=== PATIENT | male | born 1970 | race Caucasian/White ===

== ENCOUNTER 2018-08-29 14:42 | Inpatient (IN) | payer MEDICAID, OTHER ==
[~2018-08-29] VITALS: Ht 172.7 cm; Wt 92.6 kg
[2018-08-29] MEDS ORDERED: SODIUM CHLORIDE 0.9% 1,000 ML IV ONE (14:52)
[2018-08-29] MEDS ORDERED: ACETAMINOPHEN 325 MG TAB PO ONE (15:00)
[2018-08-29] MEDS ORDERED: LEVOFLOXACIN 500MG 100 ML IV ONE (15:00)
[2018-08-29] MEDS ORDERED: IBUPROFEN 600 MG TAB PO ONE (15:00)
[2018-08-29 15:35] LABS: Basophils # (auto) 0.1 uL; Basophils % (auto) 0.5 % (0.0-2.0); Eosinophils # (auto) 0 uL; Eosinophils % (auto) 0.1 % (0.0-7.0); Hematocrit 40.8 % (41.0-53.0); Hemoglobin 13.4 g/dL (13.5-17.5); Lymphocytes # (auto) 0.9 uL; Lymphocytes % (auto) 4.7 % (10.0-50.0); Mean Corpuscular Hemoglobin 29.2 pg (28.0-32.0); Mean Corpuscular Hgb Conc. 32.8 g/dL (32.0-36.0); Mean Corpuscular Volume 88.9 fL (80.0-100.0); Monocytes # (auto) 1.2 uL; Monocytes % (auto) 6.5 % (0.0-12.0); Neutrophils # (auto) 16.5 uL; Neutrophils % (auto) 88.2 % (37.0-80.0); Platelet Count (auto) 372 10^3/uL (140-450); Red Blood Cells 4.59 10^6/uL (4.5-5.90); Red Cell Distribution Width 12.9 % (11.8-14.3); White Blood Cell 18.7 10^3/uL (4.4-10.8)
[2018-08-29 15:44] LABS: Albumin 2.4 g/dL (3.4-5.0); Anion Gap 7 (5-15); Blood Urea Nitrogen 27 mg/dL (7-18); Carbon Dioxide 22 mmol/L (21-32); Chloride 105 mmol/L (98-107); Glucose 120 mg/dL (74-106); Magnesium 2.2 mg/dL (1.6-2.6); Potassium 4.7 mmol/L (3.5-5.1); Sodium 134 mmol/L (136-145)
[2018-08-29 15:47] LABS: Alanine Aminotransferase 14 U/L (16-61); Alkaline Phosphatase 102 U/L (45-117); Aspartate Aminotransferase 20 U/L (15-37); BUN/Creatinine Ratio 19.6; Bilirubin, Total 0.4 mg/dL (0.2-1.0); GFR Non-African American 58 mL/min
[2018-08-29 15:50] LABS: GFR African American > 60 mL/min
[2018-08-29 16:07] LABS: Lactic Acid w/Reflex 4.6 mmol/L (0.4-2.0)
[2018-08-29] MEDS ORDERED: SODIUM CHLORIDE 0.9% 2,700 ML IV ONE (16:30)
[2018-08-29] MEDS ORDERED: SODIUM CHLORIDE 0.9% 1,000 ML IV SCH (16:41)
[2018-08-29] MEDS ORDERED: LORazepam 0.5 MG TAB PO PRN (16:45)
[2018-08-29] MEDS ORDERED: TEMAZEPAM 15 MG CAP PO PRN (16:45)
[2018-08-29] MEDS ORDERED: OSELTAMIVIR 75 MG CAP PO ONE (16:45)
[2018-08-29] MEDS ORDERED: NITROGLYCERIN 0.4 MG SL TAB SL PRN (16:45)
[2018-08-29] MEDS ORDERED: ACETAMINOPHEN 500 MG TAB PO PRN (16:45)
[2018-08-29] MEDS ORDERED: HYDROcodone-ACET 5/325MG TAB PO PRN (16:45)
[2018-08-29] MEDS ORDERED: MORPHINE SULFATE 4 MG/ML SYR/VIAL IV PRN ×2 (16:45)
[2018-08-29] MEDS ORDERED: LACTULOSE 20Gm/30ML SOLN PO PRN ×2 (16:45)
[2018-08-29] MEDS: ALBUTEROL SULF 2.5 MG/0.5ML(0.5%) NEB SOLN NEB SCH (18:29)
[2018-08-29] MEDS: IPRATROPIUM BROM 0.5 MG/2.5ML INH SOL NEB SCH (18:29)
[2018-08-29] MEDS ORDERED: FUROSEMIDE 40 MG/4 ML VIAL IV ONE (18:45)
[2018-08-29] MEDS: FUROSEMIDE 40 MG/4 ML VIAL IV SCH (20:00)
[2018-08-29 20:13] VITALS: BP 148/79
[2018-08-29 20:40] LABS: Alcohol, Urine < 3.0 mg/dL (0-5); Amphetamine Screen, Urine POSITIVE (NEGATIVE); Barbiturate Scree,Urine NEGATIVE (NEGATIVE); Benzodiazephine Screen, Urine NEGATIVE (NEGATIVE); Cannabinoid Screen, Urine POSITIVE (NEGATIVE); Cocaine Screen, Urine NEGATIVE (NEGATIVE); Opiate Scree,Urine NEGATIVE (NEGATIVE); Phencyclidine Screen, Urine NEGATIVE (NEGATIVE)
[2018-08-29] MEDS: ALBUTEROL SULF 2.5 MG/0.5ML(0.5%) NEB SOLN NEB PRN (20:58)
[2018-08-29] MEDS: CARVEDILOL 3.125 MG TAB PO SCH (23:15)
[2018-08-29] MEDS: CLINDAMYCIN 600MG IV 50 ML IV SCH (23:15)
[2018-08-30] VITALS (12 sets, daily range): BP systolic 95–173; BP diastolic 57–109
[2018-08-30] MEDS ORDERED: cloNIDine HCL 0.1 MG TAB PO ONE (02:15)
[2018-08-30] MEDS ORDERED: LABETALOL HCL 5 MG/ML ML 20ML VIAL IV ONE ×2 (03:15→06:45)
[2018-08-30] MEDS ORDERED: LABETALOL HCL 5 MG/ML 4ML SYRINGE IV ONE (03:19)
[2018-08-30] MEDS: ALBUTEROL SULF 2.5 MG/0.5ML(0.5%) NEB SOLN NEB SCH ×4 (06:00→18:00)
[2018-08-30] MEDS: IPRATROPIUM BROM 0.5 MG/2.5ML INH SOL NEB SCH ×4 (06:00→18:00)
[2018-08-30] MEDS: FUROSEMIDE 40 MG/4 ML VIAL IV SCH ×2 (06:08→18:00)
[2018-08-30] MEDS: CLINDAMYCIN 600MG IV 50 ML IV SCH ×2 (06:08→13:46)
[2018-08-30 06:35] LABS: Basophils # (auto) 0 uL; Basophils % (auto) 0.2 % (0.0-2.0); Eosinophils # (auto) 0 uL; Eosinophils % (auto) 0.2 % (0.0-7.0); Hematocrit 33.2 % (41.0-53.0); Hemoglobin 11.1 g/dL (13.5-17.5); Lymphocytes # (auto) 1.6 uL; Lymphocytes % (auto) 7.9 % (10.0-50.0); Mean Corpuscular Hemoglobin 29.5 pg (28.0-32.0); Mean Corpuscular Hgb Conc. 33.4 g/dL (32.0-36.0); Mean Corpuscular Volume 88.4 fL (80.0-100.0); Monocytes # (auto) 1.4 uL; Monocytes % (auto) 7.1 % (0.0-12.0); Neutrophils # (auto) 16.9 uL; Neutrophils % (auto) 84.6 % (37.0-80.0); Platelet Count (auto) 285 10^3/uL (140-450); Red Blood Cells 3.76 10^6/uL (4.5-5.90); Red Cell Distribution Width 12.6 % (11.8-14.3)
[2018-08-30 06:43] LABS: Albumin 1.9 g/dL (3.4-5.0); Anion Gap 5 (5-15); Blood Urea Nitrogen 28 mg/dL (7-18); Calcium 7.5 mg/dL (8.5-10.1); Carbon Dioxide 23 mmol/L (21-32); Chloride 108 mmol/L (98-107); Glucose 112 mg/dL (74-106); Sodium 136 mmol/L (136-145)
[2018-08-30 06:48] LABS: Alanine Aminotransferase 13 U/L (16-61); Alkaline Phosphatase 92 U/L (45-117); Aspartate Aminotransferase 20 U/L (15-37); BUN/Creatinine Ratio 20.3; Bilirubin, Total 0.4 mg/dL (0.2-1.0); Cholesterol 78 mg/dL (< 200); GFR Non-African American 58 mL/min; HDL Cholesterol 29 mg/dL (40-59); LDL Cholesterol 47 mg/dL (< 100); Total Protein 7.2 g/dL (6.4-8.2); Triglycerides 65 mg/dL (< 150)
[2018-08-30 06:53] LABS: GFR African American > 60 mL/min
[2018-08-30] MEDS: ALBUTEROL SULF 2.5 MG/0.5ML(0.5%) NEB SOLN NEB PRN (08:30)
[2018-08-30] MEDS: PROMETHAZINE HCL 25 MG/ML 1ML IV PRN ×2 (08:39→14:35)
[2018-08-30] MEDS ORDERED: LORazepam 2MG/ML-1ML VIAL IV ONE (08:45)
[2018-08-30] MEDS ORDERED: ENALAPRIL MALEATE 10 MG TAB PO SCH (10:00)
[2018-08-30] MEDS ORDERED: OSELTAMIVIR 75 MG CAP PO SCH (10:00)
[2018-08-30] MEDS: PANTOPRAZOLE 40 MG TAB PO SCH (10:13)
[2018-08-30] MEDS: NITROGLYCERIN 0.2MG/HR TOPICAL PATCH TD SCH (10:13)
[2018-08-30] MEDS: CARVEDILOL 3.125 MG TAB PO SCH ×2 (10:13→23:05)
[2018-08-30] MEDS: POTASSIUM CHL 20 Meq TABLET PO SCH (10:13)
[2018-08-30] MEDS: ENOXAPARIN SOD 40 MG/0.4 ML SYRINGE SC SCH (10:13)
[2018-08-30] MEDS: LEVOFLOXACIN 500MG 100 ML IV SCH (10:23)
[2018-08-30] MEDS ORDERED: BUMETANIDE (0.25MG/ML) 4 ML VIAL ONE (11:59)
[2018-08-30] MEDS ORDERED: BUMETANIDE (0.25MG/ML) 4 ML VIAL IV ONE (12:00)
[2018-08-30] MEDS ORDERED: LORazepam 0.5 MG TAB PO PRN (12:00)
--- NOTE | 2018-08-30 14:05 | NUR ---
RT NOTE: PT AND WERE TOLD TO LEAVE PT ON BIPAP AND CALL FOR ME IF NEEDING TO COME OFF. UPON ENTERING ROOM, PT WAS OFF BIPAP AGAIN. ALTHOUGH NOT IN SEVERE OF RESPIRATORY DISTRESS. PT WAS STILL HAVING INCREASED WOB WITH ACCESSORY MUSCLE USAGE. HE WAS ON 3L NC SITTING IN BED WITH AND SONS AT BEDSIDE. SPO2 WAS 98 HR 89 RR 22. BP 179/101. RN STATED THAT PT HAS BEEN GIVEN DIURETICS WITH NO OUT PUT. IT WAS EXPLAINED TO PT THAT BIPAP WILL HELP PUSH FLUIDS OUT OF HIS LUNGS AND THAT HE WILL CONTINUE TO DETERIORATE WITH OUT IT BECAUSE XRAY IS SHOWING WORSENING EDEMA. PT UNDERSTOOD BUT STILL DID NOT WANT BIPAP ON AT THIS TIME. THEY WERE TOLD THAT IF AT ANY POINT SOB WORSENS TO PAGE AND I WILL RETURN BEDSIDE TO START BIPAP. WILL CONTINUE TO MONITOR.
[2018-08-30] MEDS: NITROGLYCERIN 50MG/250ML 250 ML IV SCH (16:15)
[2018-08-30] MEDS ORDERED: ETOMIDATE (2MG/ML) 20ML VIAL IV ONE ×2 (16:54→17:00)
[2018-08-30] MEDS ORDERED: SUCCINYLCHOLINE CHLORIDE 20 MG/ML 10ML VIAL IV ONE ×2 (16:54→17:00)
[2018-08-30] MEDS ORDERED: PROPOFOL 100 ML IV ONE (17:03)
[2018-08-30] MEDS ORDERED: MIDAZOLAM DRIP 50 mg/50mL 50 ML IV ONE (18:00)
[2018-08-30] MEDS ORDERED: ACETAMINOPHEN 650 MG RECT SUPP PR ONE ×2 (18:50→19:00)
[2018-08-30] MEDS: PROPOFOL 100 ML IV SCH (18:52)
[2018-08-30] MEDS: MIDAZOLAM DRIP 50 mg/50mL 50 ML IV SCH (18:52)
[2018-08-30] MEDS ORDERED: VANCOMYCIN 1GM/250ML 250 ML IV ONE (19:15)
[2018-08-30] MEDS ORDERED: VANCOMYCIN PER PHARMACY 0 MG IV SCH (19:15)
[2018-08-30] MEDS ORDERED: SODIUM CHLORIDE 0.9% 500 ML IV ONE (19:15)
--- NOTE | 2018-08-30 21:10 | NUR ---
RECEIVED PATIENT FROM E. VIA PT'S BED. ON PROPOFOL 20 MCG/KG/MIN., RAC #20G, VERSED 15 MG/HR. # 20 RFA. IV SITE TO RIGHT HAND DC'D IT APPEARS SWOLLEN, PITTING, AND RED. VANCOMYCIN COMPLETED. TIN RECOVERY WORKER SHOWS SINUS RHYTHM 60'S. SBP 140'S. HYPERACTIVE GAG AND COUGH, DIPRIVAN UP TO 30 MCG/KG/MIN. BED BATH GIVEN AND LINEN CHANGED. VENTED - AC 20/TV 600, FIO2 60%, PEEP +5. 8 FR/ 24 CM AT LIP. SATS 99%. WOUNDS - LEFT ROUND, HIP PINK SCABBED WOUND, ROUGH, DRY, RIGHT POSTERIOR CALF ROUND, SCABBED WOUND, ROUGH SURFACE., LEFT LATERAL KNEE - SCABBED AREA, ROUND, PINK, ROUGH SURFACE, DRY. MORGAN CATH WITH DARK ZAC URINE, (+) OGT, CLAMPED, POSITION CHECKED BY AUSCULTATION. FEBRILE UPON ADMISSION 100.2 AX. 108 KG BED SCALE EDEMA BILATERAL LOWER EXTREMITIES, 3+. RADIAL AND PEDAL PULSES 2+.
--- NOTE | 2018-08-30 21:15 | NUR ---
Respiratory note: TRANSPORTED PT FROM ER5 TO ICU BED 101 WITHOUT INCIDENT WITH RT, RN AND TECH.
[2018-08-30 22:22] LABS: BUN/Creatinine Ratio 18.1; Calcium 7.3 mg/dL (8.5-10.1)
--- NOTE | 2018-08-30 22:31 | NUR ---
LEFT IJ CENTRAL LINE PLACED BY ELIANE WAREHOUSE GENERAL LABORER, AWAITING X-RAY FOR CONFIRMATION, R/O PNEUMO.
--- NOTE | 2018-08-30 22:31 | NUR ---
Respiratory note: RECIVED PT ON VENT V14, VENT CONNECTED TO RED OUTLET AND O2 SOURCE. ALARMS ARE SET AND AUDIBLE. AMBU BAG NAND MASK AT BEDSIDE BS ARE FINE COURSE SXD SMALL DUFF. WILL CONTINUE TO MONITOR. RT NAME AND PAGER ASSIGNMENT WRITTEN ON PTS ROOM BOARD.
[2018-08-30 22:40] LABS: Potassium 5.8 mmol/L (3.5-5.1)
--- NOTE | 2018-08-30 22:45 | NUR ---
SPOKE TO ELIANE GUZMAN REGARDING K+ 5.8
[2018-08-30] MEDS ORDERED: DEXTROSE (50%) 50ML SYRG IV ONE (23:00)
[2018-08-30] MEDS ORDERED: CALCIUM GLUC 4.65meq/50ml D5AE 50 ML IV ONE (23:00)
[2018-08-30] MEDS ORDERED: SODIUM BICARBONATE 8.4 % INJ 50ML VIAL IV ONE (23:00)
[2018-08-30] MEDS ORDERED: SODIUM POLYSTYRENE SULF 15GM/60ML SUSP NG ONE (23:00)
[2018-08-30] MEDS ORDERED: InsuLIN REG 1unit/0.01ml Soln (100units/ml) IV ONE (23:00)
[2018-08-30] MEDS: ENALAPRIL MALEATE 10 MG TAB PO SCH (23:03)
--- NOTE | 2018-08-30 23:05 | NUR ---
HALF DOSAGE COREG GIVEN PRESSURES AND HR LOWER SBP 110'S, HR MID 60'S, WITH PROPOFOL AND VERSED FOR SEDATION. [facility] RIO CARD MAKER NOTIFIED
--- NOTE | 2018-08-30 23:27 | NUR ---
TREATMENT FOR ELEVATED K+ INITIATED PER ORDERS.
[2018-08-31] VITALS (106 sets, daily range): BP systolic 115–171; BP diastolic 62–116
[2018-08-31] MEDS: ALBUTEROL SULF 2.5 MG/0.5ML(0.5%) NEB SOLN NEB SCH ×4 (00:14→18:42)
[2018-08-31] MEDS: IPRATROPIUM BROM 0.5 MG/2.5ML INH SOL NEB SCH ×4 (00:14→18:41)
--- NOTE | 2018-08-31 00:14 | NUR ---
Respiratory note: AT BEDSIDE FOR ROUTINE VENT CHECK. MED NEB TX GIVEN INLINE WITHOUT ADVERSE REACTION. WILL CONTINUE TO MONITOR.
[2018-08-31] MEDS: MIDAZOLAM DRIP 50 mg/50mL 50 ML IV SCH ×6 (00:21→20:00)
--- NOTE | 2018-08-31 00:45 | NUR ---
PT'S MICHELLE AT BEDSIDE. QUESTIONS AND CONCERNS ADDRESSED. HISTORY OBTAINED.
--- NOTE | 2018-08-31 01:35 | NUR ---
BLOOD SUGAR 60, ELIANE GUZMAN PAGED TO NOTIFY
--- NOTE | 2018-08-31 01:55 | NUR ---
CALL RECEIVED FROM DEL RIO, ORDERS FOR B.S 60 RECEIVED, WILL INITIATE.
[2018-08-31] MEDS ORDERED: DEXTROSE (50%) 50ML SYRG IV ONE (02:00)
--- NOTE | 2018-08-31 04:18 | NUR ---
Respiratory note: END OF SHIFT CHECK NO CHANGES DONE. WILL HAVE DAY SHIFT CONTINUE TO MONITOR.
[2018-08-31 04:21] LABS: Basophils # (auto) 0 uL; Basophils % (auto) 0.3 % (0.0-2.0); Eosinophils # (auto) 0.2 uL; Eosinophils % (auto) 1.2 % (0.0-7.0); Hematocrit 27.5 % (41.0-53.0); Hemoglobin 9.3 g/dL (13.5-17.5); Lymphocytes % (auto) 14.1 % (10.0-50.0); Mean Corpuscular Hgb Conc. 33.8 g/dL (32.0-36.0); Mean Corpuscular Volume 88.8 fL (80.0-100.0); Monocytes # (auto) 1.3 uL; Monocytes % (auto) 9.4 % (0.0-12.0); Neutrophils # (auto) 10.5 uL; Platelet Count (auto) 230 10^3/uL (140-450); White Blood Cell 13.9 10^3/uL (4.4-10.8)
[2018-08-31] MEDS: VANCOMYCIN 500 MG in D5W 5% 100 ML IV SCH ×3 (04:35→21:23)
[2018-08-31 04:40] LABS: Calcium 7.3 mg/dL (8.5-10.1); Potassium 4.2 mmol/L (3.5-5.1)
[2018-08-31 04:43] LABS: Albumin 1.6 g/dL (3.4-5.0); BUN/Creatinine Ratio 17.6
[2018-08-31 04:48] LABS: Bilirubin, Total 0.3 mg/dL (0.2-1.0); Total Protein 6.4 g/dL (6.4-8.2)
[2018-08-31 04:55] LABS: INR 1.07 (0.9-1.15); Partial Thromboplastin Time 35.4 sec (23.78-33.04); Prothrombin Time 11.4 sec (9.27-12.13)
--- NOTE | 2018-08-31 04:55 | NUR ---
BLOOD SUGAR - 67, OJ 120CC THRU OGT, WILL RECHECK
[2018-08-31] MEDS: PROPOFOL 100 ML IV SCH ×2 (05:05→12:50)
[2018-08-31] MEDS: FUROSEMIDE 40 MG/4 ML VIAL IV SCH ×2 (06:11→17:32)
--- NOTE | 2018-08-31 06:30 | NUR ---
BLOOD SUGAR 74, WILL CONTINUE TO MONITOR.
--- NOTE | 2018-08-31 07:20 | NUR ---
REPORT GIVEN TO JAGJIT SRIVASTAVA
[2018-08-31] MEDS: CARVEDILOL 3.125 MG TAB PO SCH ×2 (10:00→22:00)
[2018-08-31] MEDS: NITROGLYCERIN 0.2MG/HR TOPICAL PATCH TD SCH (10:00)
[2018-08-31] MEDS: ENALAPRIL MALEATE 10 MG TAB PO SCH ×2 (10:00→22:06)
[2018-08-31] MEDS: PANTOPRAZOLE 40 MG TAB PO SCH (10:00)
[2018-08-31] MEDS: POTASSIUM CHL 20 Meq TABLET PO SCH (10:00)
[2018-08-31] MEDS: ENOXAPARIN SOD 40 MG/0.4 ML SYRINGE SC SCH (10:00)
[2018-08-31] MEDS: LEVOFLOXACIN 500MG 100 ML IV SCH (10:00)
--- NOTE | 2018-08-31 12:30 | NUR ---
WOUND CARE NOTE: PATIENT ADMITTED TO [facility] WITH DIAGNOSIS OF PNA. PATIENT IS CURRENTLY INTUBATED, SEDATED, CURRENT FRANCIS SCORE IS 9. PATIENT HAS MULTPLE SMALL SCABBED ABRASIONS TO BLE. WOUND PHOTOS WERE TAKEN UPON ADMIT, BY BEDSIDE NURSE. NO OPEN OR DRAINING AREAS, LEFT OPEN TO AIR. RECOMMEND: FREQUENT TURN SCHEDULE Q 2 HOURS, PRN CONDITION PERMITS, WITH PRESSURE REDISTRIBUTION USING PILLOWS/WEDGES, BID/PRN APPLICATION WITH MOISTURE BARRIER CREAM, COVERING UPPER MEDIAL SACRUM WITH OPTIFOAM GENTLE SACRAL DRESSING, DIETARY CONSULT FOR LOW FRANCIS 9, CONTINUED MONITORING BY WOUND CARE TEAM. Addendum: 08/31/18 at 1440 by Jessica Neves RN Amended: Links added.
--- NOTE | 2018-08-31 13:46 | NUR ---
Respiratory note: TITRATED FIO2 DOWN TO 50%. PATIENT IS TOLERATING CHANGE WELL. SPO2 100%, HR 59, RR 20. RN JAGJIT NOTIFIED AND AWARE. WILL CONTINUE TO MONITOR PATIENT.
[2018-08-31 15:31] LABS: Urine Bacteria FEW /hpf (None Seen); Urine Blood 2+ /uL (Negative); Urine Hyaline Cast FEW /lpf (0 - 2); Urine Mucus FEW (None Seen); Urine Specific Gravity 1.014 (1.001-1.035); Urine WBC 54 /hpf (0 - 3)
[2018-08-31 15:47] LABS: Protein, Urine 63.7 mg/dL (0.0-11.9)
[2018-08-31] MEDS: NITROGLYCERIN 50MG/250ML 250 ML IV SCH (16:10)
--- NOTE | 2018-08-31 20:00 | NUR ---
PT ADMITTED WITH BILATERAL PNA, DIARRHEA, LEG,HAND AND FOOT PITTING EDEMA, + TOX FOR METH, NONSTEMI, HYPONATREMIA AND SHERLY. ETT TO VENTILATOR. ON AC OF 20, RR 20. SUCTIONED FOR CLEAR/WHITE SECRETIONS. CLEAR ORAL SECRETIONS. WAKES UP BRIEFLY TO COUGH WHEN SUCTIONED. HERNANDEZ EQUALLY IN WITHDRAWING TO PAINFUL STIMULI. LUNGS CLEAR. NSR WITHOUT ECTOPY. OGT RESIDUAL IS DARK GREEN. ABDOMEN ROUND AND SOFT. MORGAN TO DOWN DRAIN BAG IS CLEAR YELLOW. NO BM. PLAN IS TO START TUBE FEEDINGS TOMORROW. ON VERSED AND DIPRIVAN DRIPS. RECEIVING ANTIBIOTICS.
--- NOTE | 2018-08-31 22:00 | NUR ---
REPOSITIONED TO BACK. CLEAR ORAL SECRETIONS SUCTIONED. SUCTIONED ETT FOR A SMALL AMOUNT OF WHITE SECRETIONS. LUNGS LIGHTLY COARSE. ABDOMEN SOFT. NO BOWEL SOUNDS. NO BM. MORGAN: ADEQUATE AMOUNT OF CLEAR YELLOW LIQUID. PITTING EDEMA PERSISTS IN HIS ARMS, LEGS AND FEET. WAKES UP READILY WHEN SUCTIONED, MOVING ALL EXTREMITIES EQUALLY. THEN QUIETS BACK DOWN. NSR RATE RANGING FROM 59 TO 67.
--- NOTE | 2018-08-31 23:35 | NUR ---
PO BLOOD PRESSURE MEDICATION DID NOT BRING HIS BLOOD PRESSURE UNDER 140. STARTED THE TRIDIL DRIP.
[2018-09-01] VITALS (73 sets, daily range): BP systolic 119–169; BP diastolic 54–96
--- NOTE | 2018-09-01 | NUR ---
AFTER SUCTIONING HE HAD A COUGHING EPISODE, ALL EXTREMITIES WERE MOVING, FACE TURNED RED AND HE WAS MOVING IN BED. THEN HE CALMED DOWN. SUCTIONED FROMT THE ETT A SMALL AMOUNT OF WHITE SECRETIONS. SMALL AMOUNT OF CLEAR ORAL SECRETIONS. ALL IV SITES SHOW NO REDNESS OR SWELLING. NSR WITH A RARE PVC. HEART RATE RANGES FROM 59-68. TRIDIL: INCREASING THE DRIP TO TRY AND MAINTAIN A BLOOD PRESSURE LESS THAN 140. NO INCREASE ON SEDATION. URINE OUTPUT ADEQUATE. URINE CLEAR YELLOW. SCDS ON. REPOSITIONED TO HIS LEFT.
[2018-09-01] MEDS: ALBUTEROL SULF 2.5 MG/0.5ML(0.5%) NEB SOLN NEB SCH ×4 (00:55→17:58)
[2018-09-01] MEDS: IPRATROPIUM BROM 0.5 MG/2.5ML INH SOL NEB SCH ×4 (00:55→17:58)
[2018-09-01] MEDS: PROPOFOL 100 ML IV SCH ×3 (01:00→21:40)
[2018-09-01] MEDS: MIDAZOLAM DRIP 50 mg/50mL 50 ML IV SCH ×6 (01:00→23:11)
--- NOTE | 2018-09-01 02:00 | NUR ---
WOKE UP AGAIN , COUGHING, MOVING ALL EXTREMITIES. SUCTIONED FOR A TINY AMOUNT OF WHITE SECRETIONS. HE CALMED DOWN. REPOSITIONED TO BACK. NSR WITHOUT ECTOPY. ALL IV SITES SHOW NO REDNESS OR SWELLING. URINE IS CLEAR YELLOW IN ADEQUATE AMOUNTS.
--- NOTE | 2018-09-01 04:10 | NUR ---
CHG BATH. DRAW SHEET/PAD LINEN CHANGE. REPOSITIONED. HOB 30 DEGREES. SUCTIONED ETT FOR A SMALL AMOUNT OF WHITE SECRETIONS. ORAL CARE DONE. ABDOMEN SOFT AND ROUND. SEVERAL SCABBED AREAS ON LEGS. PULSES PALPABLE. NO FEVERS TONIGHT. URINE IS CLEAR YELLOW.
[2018-09-01 04:17] LABS: Basophils # (auto) 0 uL; Basophils % (auto) 0.3 % (0.0-2.0); Eosinophils # (auto) 0.2 uL; Eosinophils % (auto) 1.7 % (0.0-7.0); Hematocrit 28.1 % (41.0-53.0); Hemoglobin 9.5 g/dL (13.5-17.5); Lymphocytes # (auto) 1.3 uL; Lymphocytes % (auto) 9.7 % (10.0-50.0); Mean Corpuscular Hemoglobin 29.6 pg (28.0-32.0); Mean Corpuscular Hgb Conc. 33.9 g/dL (32.0-36.0); Mean Corpuscular Volume 87.3 fL (80.0-100.0); Monocytes # (auto) 1.1 uL; Monocytes % (auto) 8.1 % (0.0-12.0); Neutrophils # (auto) 11.1 uL; Neutrophils % (auto) 80.2 % (37.0-80.0); Nucleated Red Blood Cells % 0.1 %; Platelet Count (auto) 253 10^3/uL (140-450); Red Blood Cells 3.22 10^6/uL (4.5-5.90); Red Cell Distribution Width 12.8 % (11.8-14.3); White Blood Cell 13.8 10^3/uL (4.4-10.8)
[2018-09-01 04:42] LABS: BUN/Creatinine Ratio 20.1; Calcium 7.6 mg/dL (8.5-10.1); Potassium 4.5 mmol/L (3.5-5.1)
[2018-09-01] MEDS: VANCOMYCIN 500 MG in D5W 5% 100 ML IV SCH (05:00)
[2018-09-01] MEDS: FUROSEMIDE 40 MG/4 ML VIAL IV SCH ×2 (06:00→18:28)
--- NOTE | 2018-09-01 08:30 | NUR ---
ASSESSMENT pt. was restless/ agitated earlier, sedation meds titrated, pt. calmer and more comfortable, oral care done and repositioning, pt. tolerated procedures well, will monitor pt.
[2018-09-01] MEDS: CARVEDILOL 3.125 MG TAB PO SCH ×2 (10:00→22:00)
[2018-09-01] MEDS: NITROGLYCERIN 0.2MG/HR TOPICAL PATCH TD SCH (10:00)
[2018-09-01] MEDS: LEVOFLOXACIN 500MG 100 ML IV SCH (10:18)
[2018-09-01] MEDS: PANTOPRAZOLE 40 MG TAB PO SCH (10:19)
[2018-09-01] MEDS: ENALAPRIL MALEATE 10 MG TAB PO SCH ×2 (10:20→22:00)
[2018-09-01] MEDS: ENOXAPARIN SOD 40 MG/0.4 ML SYRINGE SC SCH (10:20)
--- NOTE | 2018-09-01 10:30 | NUR ---
RE-ASSESSMENT pt. staying calm, gets restless with activity then calms down after bedside procedures, oral care done and pt. tolerated well, due meds were given and pt. made aware, ngt clamped, will monitor pt.
[2018-09-01] MEDS: POTASSIUM EFFERVESENT TAB 25 MEQ PO SCH (10:47)
--- NOTE | 2018-09-01 12:30 | NUR ---
RE-ASSESS vss, afebrile, no pain/distress seen, will continue to monitor pt.
[2018-09-01] MEDS ORDERED: Jevity 1.2 Cal/Fiber 1 Liter GT SCH (15:00)
--- NOTE | 2018-09-01 15:10 | NUR ---
Provider/Hospitalist at bedside Dr. Zimmer made rounds and saw pt. and made some orders.
--- NOTE | 2018-09-01 15:59 | NUR ---
Provider/Hospitalist at bedside Dr. Wells made rounds and saw pt. and made some orders.
--- NOTE | 2018-09-01 16:30 | NUR ---
RE-ASSESS vss, afebrile, no pain/distress seen, will continue to monitor pt.
[2018-09-01] MEDS: NITROGLYCERIN 50MG/250ML 250 ML IV SCH (18:56)
--- NOTE | 2018-09-01 20:00 | NUR ---
PT ADMITTED ON 08/29/2018 FOR BILATERAL PNEUMONIA. , DIARRHEA, SWELLING OF ARMS , LEGS AND FEET, ACUTE RESPIRATORY FAILURE, NSTEMI, LOWER LEG CELLULITIS . INTUBATED ON 08/30/2018. NO LONGER HAS DIARRHEA. SUCTIONING A LOT OF THICK YELLOW SECRETIONS TONIGHT. ARMS AND LEGS CONTINUE TO BE EDEMETOUS. MID CALF REDNESS ON LEGS. ALL PULSES PALPABLE. WAKES UP READILY. HERNANDEZ EQUALLY. DOES NOT OPEN HIS EYES AND FOCUS ON YOU. ABDOMEN IS ROUND AND SOFT. OGT TO LIS : 110CC OF DARK GREEN SECRETIONS. JEVITY TUBE FEED STARTED AT 15CC/HR. MORGAN: LARGE AMOUNT OF CLEAR, WATERY LIGHT YELLOW LIQUID TO DOWN DRAIN BAG. RADIAL PULSES STRONGER TODAY. BILATERAL FEET PULSES ARE WEAK. COCCYX AREA SKIN IS CLEAN, DRY, NO REDNESS. HEELS SHOW NO REDNESS. PILLOW U NDER LEGS TO KEEP HEELS OFF OF BED. SCDS ON. 3 PERIPHERAL IVS THAT SHOW NO REDNESS OR SWELLING . LEFT IJ TLC SITE IS CLEAN AND DRY WITH A CURRENT DRESSING AND BIOPATCH.
--- NOTE | 2018-09-01 21:40 | NUR ---
TO CT SCAN PER BED WITH RT,2 RNS AND SQUIRT MACHINE OPERATOR.PORTABLE MONITOR USED. ACLS MED BOX WITH US. PATIENT BAGGED TO AND DURING PROCEDURE BY RT. CT OF CHEST DONE. RETURNED TO ICU 101 AT 2220. PATIENT PLACED ON BEDSIDE MONITOR. SCDS REAPPLIED. SUCTIONED PATIENT FOR A LARGE AMOUNT OF THICK YELLOW SECRETIONS. NSR WITHOUT ECTOPY. IVS PATENT. NO REDNESS OR SWELLING NOTED IN ANY IV.
[2018-09-01] MEDS: VANCOMYCIN 1GM/250ML 250 ML IV SCH (23:12)
[2018-09-02] VITALS (106 sets, daily range): BP systolic 103–174; BP diastolic 46–112
--- NOTE | 2018-09-02 | NUR ---
NSR WITHOUT ECTOPY. WHEN QUIET, THE BLOOD PRESSURE IS WITHIN THE PARAMETER OF BEING LESS THAN 140 SYSTOLIC. CHELO. CLEAR ORAL SECRETIONS. SUCTIONING THICK YELLOW SECRETIONS FROM HIS LUNGS. LUNG SOUNDS ARE GETTING CLEARER. ABDOMEN IS SOFT. GOOD STRONG COUGH. HERNANDEZ SPONTANEOUSLY. IVS PATENT, SHOWING NO REDNESS OR SWELLING AT THEIR SITES. TOLERATING THE TUBE FEEDINGS WELL.
[2018-09-02] MEDS: IPRATROPIUM BROM 0.5 MG/2.5ML INH SOL NEB SCH ×5 (00:11→23:53)
[2018-09-02] MEDS: ALBUTEROL SULF 2.5 MG/0.5ML(0.5%) NEB SOLN NEB SCH ×5 (00:11→23:53)
--- NOTE | 2018-09-02 02:00 | NUR ---
PROPOFOL BOTTLE AND TUBING CHANGE. REPOSITIONED. ORAL CARE. LUNGS CLEAR. NSR WITHOUT ECTOPY.
[2018-09-02] MEDS: MIDAZOLAM DRIP 50 mg/50mL 50 ML IV SCH ×5 (03:00→21:30)
--- NOTE | 2018-09-02 04:00 | NUR ---
CHG BATH. INCONTINENT OF BROWN SOFT LIQUID STOOL. RAC AND L WRIST IV REMOVED. NEW BLOOD PRESSURE CUFF. NEW MAXIMO VALVE. COMPLETE LINEN CHANGE.
[2018-09-02 04:31] LABS: Potassium 4.1 mmol/L (3.5-5.1)
[2018-09-02 04:33] LABS: Basophils # (auto) 0 uL; Basophils % (auto) 0.3 % (0.0-2.0); Eosinophils # (auto) 0.2 uL; Eosinophils % (auto) 1.4 % (0.0-7.0); Hemoglobin 9.3 g/dL (13.5-17.5); Lymphocytes # (auto) 1.1 uL; Lymphocytes % (auto) 8.5 % (10.0-50.0); Mean Corpuscular Hemoglobin 29.8 pg (28.0-32.0); Mean Corpuscular Hgb Conc. 34.4 g/dL (32.0-36.0); Mean Corpuscular Volume 86.7 fL (80.0-100.0); Monocytes # (auto) 1.1 uL; Monocytes % (auto) 8.1 % (0.0-12.0); Neutrophils # (auto) 10.7 uL; Neutrophils % (auto) 81.7 % (37.0-80.0); Platelet Count (auto) 251 10^3/uL (140-450); Red Blood Cells 3.11 10^6/uL (4.5-5.90); Red Cell Distribution Width 12.8 % (11.8-14.3); White Blood Cell 13.1 10^3/uL (4.4-10.8)
[2018-09-02 04:36] LABS: BUN/Creatinine Ratio 20.8; Calcium 7.4 mg/dL (8.5-10.1)
[2018-09-02] MEDS: FUROSEMIDE 40 MG/4 ML VIAL IV SCH ×2 (06:11→17:21)
[2018-09-02] MEDS: PROPOFOL 100 ML IV SCH ×5 (06:12→21:30)
[2018-09-02] MEDS: NITROGLYCERIN 50MG/250ML 250 ML IV SCH (06:12)
--- NOTE | 2018-09-02 06:27 | NUR ---
Respiratory note: RECEIVED PATIENT ON V14 ESPRIT VENT ORALLY INTUBATED WITH AN 8.0 ETT SECURED VIA ADAMA AT THE 24CM MARKING AT THE LIP, AND MECHANICALLY VENTILATED WITH THE ABOVE SETTINGS. SPO2 96%, LUNG SOUNDS ARE CLEAR T/O, NO SECRETIONS WHEN SUCTIONED. SKIN IS WARM/DRY TO THE TOUCH AND IS INTACT NEAR ADAMA SITE. THERE IS AN OGT IN PLACE AND SECURED TO THE ETT, A TRIPLE LUMEN CENTRAL LINE IS PLACED IN THE LEFT IJ. NON PITTING EDEMA NOTED IN THE UPPER EXTREMITIES, AND PITTING EDEMA NOTED IN THE LOWER EXTREMITIES. LOWER EXTREMITIES HAVE SEQUENTIAL STOCKINGS ON AND ARE OPERATIONAL. NO NEW AM CXR TO ASSESS. PATIENT IS UNRESPONSIVE TO BOTH VERBAL/TACTILE STIMULI AND IS SEDATED ON VERSED, AND PROPOFOL DRIPS. HE IS RESTING COMFORTABLY AND TOLERATING VENT WELL, NO CHANGES MADE. VENT PLUGGED INTO RED OUTLET AND ALL ALARMS ARE SET AND AUDIBLE. WILL CONTINUE TO ASSESS PATIENT WELL VENTILATOR FUNCTION. [employer] TV-[employer] RUN INLINE.
--- NOTE | 2018-09-02 07:30 | NUR ---
Report received, pt assessed. Report received from Valentine with Anna. Patient admitted on 08/29/18 and intubated on 08/30/18. Admit diagnosis bilateral pneumonia. Patient also presented with coughing, diarrhea, and swelling of limbs. Patient tested positive for amphetamines and Cannibis. Assessed, lungs clear bilaterally, bowel sounds hypoactive, pupils brisk, sinus shantel, lines labeled and functioning, AM care completed. 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 Scabs present on skin and some edema of the limb. Pulses palpable. Signed: 09/02/18 at 0933 by SN Peyton <Co-Signature Required> Co-Signed: 09/02/18 at 0933 by Anna Fernandez RN
[2018-09-02] MEDS: CARVEDILOL 3.125 MG TAB PO SCH ×2 (09:35→23:00)
[2018-09-02] MEDS: NITROGLYCERIN 0.2MG/HR TOPICAL PATCH TD SCH (09:37)
[2018-09-02] MEDS: POTASSIUM EFFERVESENT TAB 25 MEQ PO SCH (09:37)
[2018-09-02] MEDS: PANTOPRAZOLE 40 MG TAB PO SCH (09:37)
[2018-09-02] MEDS: ENOXAPARIN SOD 40 MG/0.4 ML SYRINGE SC SCH (09:38)
[2018-09-02] MEDS: ENALAPRIL MALEATE 10 MG TAB PO SCH ×2 (09:38→23:00)
[2018-09-02] MEDS: LEVOFLOXACIN 500MG 100 ML IV SCH (09:39)
[2018-09-02 09:50] LABS: Albumin 1.5 g/dL (3.4-5.0)
--- NOTE | 2018-09-02 10:04 | NUR ---
Respiratory note: CXR ASSESSED AND IT SHOWS THE ETT SITTING IN UNSATISFACTORY POSITION, APPROX 6CM ABOVE THE CAMERON. ETT SUBSEQUENTLY ADVANCED 2CM AND RESECURED AT THE 26CM MARKING AT THE LIP.
--- NOTE | 2018-09-02 10:20 | NUR ---
FEEDING CHANGE NEW GOAL FOR [facility] FEEDING IS 50ML/HOUR PER DIETARY. Signed: 09/02/18 at 1026 by SN Peyton <Co-Signature Required> Co-Signed: 09/02/18 at 1026 by Anna Fernandez RN
[2018-09-02] MEDS ORDERED: Jevity 1.2 Cal/Fiber 1 Liter GT SCH (10:30)
[2018-09-02] MEDS ORDERED: MORPHINE SULFATE 4 MG/ML SYR/VIAL IV PRN ×2 (10:45)
[2018-09-02] MEDS ORDERED: hydrALAZINE HCL 25 MG TAB PO PRN (10:45)
[2018-09-02] MEDS ORDERED: HYDROcodone-ACET 5/325MG TAB PO PRN (10:45)
--- NOTE | 2018-09-02 10:45 | NUR ---
DR MENSAH REQUESTING DR STEVEN Mensah requested a page for Dr. Alcantar d/t patients high trops and CHF. Signed: 09/02/18 at 1053 by SN Peyton <Co-Signature Required> Co-Signed: 09/02/18 at 1053 by Anna Fernandez RN
--- NOTE | 2018-09-02 11:40 | NUR ---
DR ALCANTAR BEDSIDE Dr. Alcantar in the ICU, stated to continue the plan of care on the patient and once the patient is extubated he will put in a workup. Signed: 09/02/18 at 1145 by SN Peyton <Co-Signature Required> Co-Signed: 09/02/18 at 1145 by Anna Fernandez RN
--- NOTE | 2018-09-02 11:48 | NUR ---
NUTRITION CONSULT/ASSESSMENT NOTES Please refer to link notes of nutrition screen form filed under the intervention section of the plan of care for further details. Est. Needs: 1600 kcal to 2150 kcal (15-20 kcal/kgBW), 86 gms to 107 gms pro (0.8-1.0 gms/kgBW). Will continue to monitor pertinent labs and reassess nutrient needs prn Thank you for this consult. Addendum: 09/02/18 at [address] Amended: Links added.
--- NOTE | 2018-09-02 12:25 | NUR ---
DR DURHAM BEDSIDE Dr. Durham at bedside to complete thoracentesis. Consent signed, in chart. Signed: 09/02/18 at 1231 by SN Peyton <Co-Signature Required> Co-Signed: 09/02/18 at 1231 by Anna Fernandez RN
[2018-09-02] MEDS: VANCOMYCIN 1GM/250ML 250 ML IV SCH (17:20)
--- NOTE | 2018-09-02 19:28 | NUR ---
SBAR report given to ATIF Payton then assessed patient at bedside.
[2018-09-03] VITALS (106 sets, daily range): BP systolic 99–183; BP diastolic 53–113
[2018-09-03] MEDS: MIDAZOLAM DRIP 50 mg/50mL 50 ML IV SCH ×5 (02:04→23:12)
[2018-09-03] MEDS: PROPOFOL 100 ML IV SCH ×5 (02:08→20:35)
[2018-09-03 04:09] LABS: Albumin 1.6 g/dL (3.4-5.0); Calcium 7.4 mg/dL (8.5-10.1); Potassium 4.2 mmol/L (3.5-5.1)
[2018-09-03 04:13] LABS: BUN/Creatinine Ratio 18.8; Bilirubin, Total 0.4 mg/dL (0.2-1.0); Total Protein 6.9 g/dL (6.4-8.2)
[2018-09-03 04:20] LABS: Basophils # (auto) 0 uL; Basophils % (auto) 0.3 % (0.0-2.0); Eosinophils # (auto) 0.2 uL; Eosinophils % (auto) 1.4 % (0.0-7.0); Hematocrit 28.3 % (41.0-53.0); Hemoglobin 9.7 g/dL (13.5-17.5); Lymphocytes # (auto) 1.2 uL; Lymphocytes % (auto) 10.8 % (10.0-50.0); Mean Corpuscular Hemoglobin 29.8 pg (28.0-32.0); Mean Corpuscular Hgb Conc. 34.3 g/dL (32.0-36.0); Mean Corpuscular Volume 86.9 fL (80.0-100.0); Monocytes % (auto) 9.4 % (0.0-12.0); Neutrophils # (auto) 8.4 uL; Neutrophils % (auto) 78.1 % (37.0-80.0); Platelet Count (auto) 247 10^3/uL (140-450); Red Blood Cells 3.26 10^6/uL (4.5-5.90); Red Cell Distribution Width 12.7 % (11.8-14.3); White Blood Cell 10.7 10^3/uL (4.4-10.8)
[2018-09-03] MEDS: FUROSEMIDE 40 MG/4 ML VIAL IV SCH ×2 (05:19→17:51)
--- NOTE | 2018-09-03 06:30 | NUR ---
DRESSING CHANGE TO CENTRAL LINE TO LEFT IJ DUE TO MOISTURE AND DRESSING COMING OFF.
[2018-09-03] MEDS: IPRATROPIUM BROM 0.5 MG/2.5ML INH SOL NEB SCH ×3 (06:48→18:10)
[2018-09-03] MEDS: ALBUTEROL SULF 2.5 MG/0.5ML(0.5%) NEB SOLN NEB SCH ×3 (06:49→18:11)
--- NOTE | 2018-09-03 07:23 | NUR ---
REPORT TO GEOVANNA SRIVASTAVA
[2018-09-03] MEDS: NITROGLYCERIN 0.2MG/HR TOPICAL PATCH TD SCH (09:45)
[2018-09-03] MEDS: LEVOFLOXACIN 500MG 100 ML IV SCH (09:45)
[2018-09-03] MEDS: POTASSIUM EFFERVESENT TAB 25 MEQ PO SCH (09:46)
[2018-09-03] MEDS: ENOXAPARIN SOD 40 MG/0.4 ML SYRINGE SC SCH (09:46)
[2018-09-03] MEDS: CARVEDILOL 3.125 MG TAB PO SCH (09:46)
[2018-09-03] MEDS: PANTOPRAZOLE 40 MG TAB PO SCH (09:46)
--- NOTE | 2018-09-03 10:01 | NUR ---
FAMILY AND SON AT BEDSIDE. UPDATED ON PATIENT STATUS. ALL QUESTIONS AND CONCERNS ADDRESSED AT THIS TIME
--- NOTE | 2018-09-03 11:18 | NUR ---
DR. MENSAH AT BEDSIDE
[2018-09-03] MEDS: NITROGLYCERIN 50MG/250ML 250 ML IV SCH (12:41)
[2018-09-03] MEDS: hydrALAZINE HCL 25 MG TAB PO SCH ×2 (14:10→21:42)
--- NOTE | 2018-09-03 16:39 | NUR ---
FAMILY BROTHER AT BEDSIDE. UPDATED ON PATIENT STATUS. ALL QUESTIONS AND CONCERNS ADDRESSED AT THIS TIME
[2018-09-03] MEDS: NYSTATIN (MOUTH-THROAT) 500,000 UNITS/5 ML SUSP MT SCH ×2 (17:51→21:42)
--- NOTE | 2018-09-03 20:30 | NUR ---
COMPLETE LINEN CHANGE PERFORMED AT THIS TIME
--- NOTE | 2018-09-03 23:25 | NUR ---
ORAL CARE PERFORMED
[2018-09-04] VITALS (100 sets, daily range): BP systolic 95–196; BP diastolic 42–119
[2018-09-04] MEDS: IPRATROPIUM BROM 0.5 MG/2.5ML INH SOL NEB SCH ×4 (00:16→19:10)
[2018-09-04] MEDS: ALBUTEROL SULF 2.5 MG/0.5ML(0.5%) NEB SOLN NEB SCH ×4 (00:21→19:10)
[2018-09-04] MEDS: PROPOFOL 100 ML IV SCH ×2 (01:01→06:08)
--- NOTE | 2018-09-04 01:24 | NUR ---
BED BATH GIVEN
--- NOTE | 2018-09-04 03:17 | NUR ---
REPORT GIVEN TO JAQUAN SRIVASTAVA TO ASSUME CARE
--- NOTE | 2018-09-04 03:30 | NUR ---
OPENING SHIFT NOTE ASSUMED CARE OF PATIENT, REPORT RECEIVED FROM CHARGE ACCOUNT CLERK RN. POC REVIEWED, HEAD TO TOE ASSESSMENT PERFORMED AND DOCUMENTED (SEE INTERVENTION SPREADSHEET). AT THIS TIME, PATIENT IS INTUBATED WITH POSITIVE GAG AND COUGH, PUPILS 3+ BRISK, VSS WITH HEART RATE IN THE 50'S. IV SITE PATENT. PATIENT POSITIONED FOR COMFORT, BONY PROMINENCES OFFLOADED, BED LOCKED AND IN LOWEST POSITION. SAFETY PRECAUTIONS IN PLACE. BVM AND SUCTION AT BEDSIDE. WILL MONITOR DURING SHIFT.
[2018-09-04 03:47] LABS: Hematocrit 28.1 % (41.0-53.0); Hemoglobin 9.7 g/dL (13.5-17.5); Mean Corpuscular Hemoglobin 30.1 pg (28.0-32.0); Mean Corpuscular Hgb Conc. 34.3 g/dL (32.0-36.0); Mean Corpuscular Volume 87.7 fL (80.0-100.0); Platelet Count (auto) 238 10^3/uL (140-450); Red Blood Cells 3.21 10^6/uL (4.5-5.90); Red Cell Distribution Width 12.9 % (11.8-14.3); White Blood Cell 9.5 10^3/uL (4.4-10.8)
[2018-09-04 03:55] LABS: BUN/Creatinine Ratio 19.4; Calcium 7.6 mg/dL (8.5-10.1); Potassium 3.9 mmol/L (3.5-5.1)
[2018-09-04 04:22] LABS: Basophils % (manual) 0 (0.0-2.0); Blast Cells 0; Metamyelocytes % 0; Promyelocytes % 0; Reactive Lymphocytes 0
[2018-09-04 05:02] LABS: Band Neutrophils % (manual) 4; Eosinophils % (manual) 1 (0-7); Lymphocytes % (manual) 16 (10.0-50.0); Monocytes % (manual) 9 (0-12); Myelocytes % 1
[2018-09-04] MEDS: FUROSEMIDE 40 MG/4 ML VIAL IV SCH ×2 (05:32→19:47)
[2018-09-04] MEDS: hydrALAZINE HCL 25 MG TAB PO SCH ×3 (05:33→22:09)
[2018-09-04] MEDS: NYSTATIN (MOUTH-THROAT) 500,000 UNITS/5 ML SUSP MT SCH ×4 (05:33→22:08)
[2018-09-04] MEDS: MIDAZOLAM DRIP 50 mg/50mL 50 ML IV SCH (05:58)
--- NOTE | 2018-09-04 09:25 | NUR ---
CALL RECEIVED FROM DR. MENSAH SEDATION STOPPED FOR ORDERS TO CPAP PT TODAY.
[2018-09-04] MEDS: LEVOFLOXACIN 500MG 100 ML IV SCH (09:41)
[2018-09-04] MEDS: POTASSIUM EFFERVESENT TAB 25 MEQ PO SCH (09:41)
[2018-09-04] MEDS: ENOXAPARIN SOD 40 MG/0.4 ML SYRINGE SC SCH (09:41)
[2018-09-04] MEDS: NITROGLYCERIN 0.2MG/HR TOPICAL PATCH TD SCH (09:42)
[2018-09-04] MEDS: PANTOPRAZOLE 40 MG TAB PO SCH (09:42)
--- NOTE | 2018-09-04 11:00 | NUR ---
RT NOTE: PT EXTUBATED PER DR MENSAH ORDER AFTER 1HR CPAP TRIAL AND ABG WERE DONE. RN AND EMT STUDENT AT BEDSIDE FOR EXTUBATION. NO STRIDOR HEARD IN AIRWAY. LUNG SOUNDS CLEAR. PT PLACED ONTO 40% COOL AEROSOL. SPO2 98 HR 82 RR 24. WILL CONTINUE TO MONITOR.
--- NOTE | 2018-09-04 11:05 | NUR ---
CONTACTED DR. MENSAH AWARE OF CPAP AND ABG RESULTS, ORDERS TO EXTUBATE RECEIVED.
--- NOTE | 2018-09-04 11:23 | NUR ---
Nutrition Follow-up Notes Wt.: 106.5 kg Pt was intubated off sedated with RT and RN by beside. per RN pt is on CPAP trial. pt is currently NPO with EN support turned off for CPAP per RN. pt as on EN support with Jevity 1.2 @ 45 ml/hr providing 1296 kcals and 59 gm protein Est. Needs: 1600 kcal to 2150 kcal (15-20 kcal/kgBW), 86 gms to 107 gms pro (0.8-1.0 gms/kgBW). Will continue to monitor pertinent labs and reassess nutrient needs prn Labs: BUN 31 H, CREAT 1.6 H, ALB 1.6 L, CA 7.6 L. Skin: Geoffrey scale 13, mod risk, pt with multiple abrasions per RN doc GI: Pt has no BM reported per automobile repossessor. PES: Altered nutrition related lab values r/t acute/chronic medical condition aeb elev renal labs, hypocalcemia and severe hypoalbuminemia Increased nutrient needs r/t current medical condition aeb intubated, sedated, NPO with EN support, severe hypoalbuminemia Obesity r/t excessive PO intake aeb 153% IBW, BMI 36.0 kg/m2 and increased body adiposity Will continue to monitor NPO status, skin status, pertinent labs and weight trend. F/u in 2 to 3 days. Rec.: 1.) Resume EN support with Jevity @ 60 ml/hr if pt fails CPAP. 2)If Albumin level continues trending down, consider Prostat 1 pkt BID. 2.) Advance gradually to oral diet when medically appropriate. 3.) Consider daily MVI with minerals and Asc acid 500 mgs BID.4.) Refer to RD for further nutrition educ. and weight monitoring upon discharge. 5.) Continue current plan of care.
--- NOTE | 2018-09-04 12:58 | NUR ---
RT NOTE: PT REFUSED HIS SCHEDULED 1200 TX. PT IS SHOWING NO SIGNS OF RESPIRATORY DISTRESS. LUNG SOUNDS ARE CLEAR T/O. PT IS AWAKE ALERT. RN AT BEDSIDE TO DO SWALLOW EVAL. WILL CONTINUE TO MONITOR.
--- NOTE | 2018-09-04 13:21 | NUR ---
FAMILY AT BEDSIDE/CLEAR LIQUID ADMINISTRATION PATIENT'S SPOUSE AND SON AT BEDSIDE, PATIENT ABLE TO SWALLOW APPLE JUICE, JELL-O AND ICE CHIPS WITH NO PROBLEM. FAMILY INSTRUCTED ON ASPIRATION PRECAUTIONS AND SUCTION SET UP AT BEDSIDE. PATIENT'S SON AND SPOUSE VERBALIZED UNDERSTANDING.
[2018-09-04] MEDS: NITROGLYCERIN 50MG/250ML 250 ML IV SCH (16:10)
--- NOTE | 2018-09-04 17:53 | NUR ---
Torres catheter dc'd Order to discontinue torres catheter. Torres dc'd with clean technique following deflation of balloon. Patient tolerated well with no complaints of pain. Continue care. TOTAL OF 800ML FROM TORRES BAG.
--- NOTE | 2018-09-04 19:00 | NUR ---
OPENING NOTE ASSUMED CARE OF PATIENT AT THIS TIME. REPORT RECEIVED FROM DAY SHIFT RN. POC REVIEWED, HEAD TO TOE ASSESSMENT COMPLETE, SEE INTERVENTION SPREADSHEET FOR COMPLETE DETAILS. PT ALERT TO SELF, AWARE THAT PT IS IN HOSPITAL. PT MAKES COMMENTS THAT DO NOT MAKE SENSE, PT STATES, "DO THE CUPS MAKE MUSIC?" PT ABLE TO VERBALIZE NEEDS. MOTOR SKILLS NOT FULLY INTACT AT THIS TIME. PT NEEDS ASSISTANCE WITH TURNING, TOILETING ETC. VSS. PT ON ROOM AIR. PT ORIENTED TO CALL LIGHT, NOC NURSE. BED LOCKED AND IN LOWEST POSITION, SAFETY PRECAUTIONS IN PLACE. SUCTION AND BVM AT BEDSIDE. WILL MONITOR PT CAREFULLY.
--- NOTE | 2018-09-04 19:15 | NUR ---
Respiratory note: At bedside for med neb tx. Pt tolerating well via mask. No s/s of adverse reaction. Will continue to monitor.
--- NOTE | 2018-09-04 20:50 | NUR ---
PT REFUSING LINEN CHANGE, GOWN CHANGE. WILL ATTEMPT AGAIN AT A LATER TIME. PT DENIES PAIN, DOES NOT APPEAR TO BE IN DISTRESS AT THIS TIME.
--- NOTE | 2018-09-04 21:25 | NUR ---
ELIMINATION/LINEN CHANGE PT COMPLIANT WITH LINEN CHANGE AT THIS TIME. ALL BED SHEETS AND GOWN CHANGED. PT URINATED 550 MLS IN URINAL. PT TOLERATED WELL. BED LOCKED AND IN LOWEST POSITION, SAFETY PRECAUTIONS IN PLACE. WILL CONTINUE TO MONITOR CAREFULLY.
[2018-09-04] MEDS ORDERED: METOPROLOL TARTRATE 25 MG TAB PO SCH (22:00)
--- NOTE | 2018-09-04 23:00 | NUR ---
PT COMPLAINING OF PAIN IN RIGHT KNEE, PT REFUSING PAIN MEDICATION. ICE PACK PLACED ON KNEE AT THIS TIME.
[2018-09-05] VITALS (53 sets, daily range): BP systolic 120–186; BP diastolic 54–115
[2018-09-05] MEDS: ALBUTEROL SULF 2.5 MG/0.5ML(0.5%) NEB SOLN NEB SCH ×4 (01:01→18:01)
[2018-09-05] MEDS: IPRATROPIUM BROM 0.5 MG/2.5ML INH SOL NEB SCH ×4 (01:01→18:01)
[2018-09-05 04:28] LABS: Calcium 7.4 mg/dL (8.5-10.1); Potassium 3.3 mmol/L (3.5-5.1)
[2018-09-05] MEDS: NYSTATIN (MOUTH-THROAT) 500,000 UNITS/5 ML SUSP MT SCH (06:07)
[2018-09-05] MEDS: FUROSEMIDE 40 MG/4 ML VIAL IV SCH ×2 (06:08→18:31)
[2018-09-05] MEDS: hydrALAZINE HCL 25 MG TAB PO SCH ×3 (06:08→21:49)
--- NOTE | 2018-09-05 09:14 | NUR ---
PAGED PHYSICAL THERAPY TO ASSESS PATIENT ORDERED BY MD. AWAITING RESPONSE. COMFORT MEASURES PROVIDED. PATIENT CONTINUES TO EAT HIS BREAKFAST.
[2018-09-05] MEDS ORDERED: MORPHINE SULFATE 4 MG/ML SYR/VIAL IV PRN ×2 (09:15)
[2018-09-05] MEDS ORDERED: HYDROcodone-ACET 5/325MG TAB PO PRN (09:15)
--- NOTE | 2018-09-05 09:43 | NUR ---
PHYSICAL THERAPY AT BEDSIDE PATIENT AMBULATED WITH ASSISTANCE OF FWW. PATIENT SITTING UP IN BEDSIDE CHAIR - TOLERATING WELL. CALL LIGHT, WATER, URINAL AND ALL PERSONAL BELONGINGS WITHIN REACH.
[2018-09-05] MEDS: METOPROLOL TARTRATE 25 MG TAB PO SCH ×2 (10:14→21:49)
[2018-09-05] MEDS: PANTOPRAZOLE 40 MG TAB PO SCH (10:14)
[2018-09-05] MEDS: ENOXAPARIN SOD 40 MG/0.4 ML SYRINGE SC SCH (10:15)
[2018-09-05] MEDS: ASPirin-EC 81 mg tab PO SCH (10:15)
[2018-09-05] MEDS: LEVOFLOXACIN 500MG 100 ML IV SCH (10:16)
--- NOTE | 2018-09-05 11:14 | NUR ---
BOWEL MOVEMENT/COMFORT ASSISTED PATIENT TO TOILET FROM BEDSIDE CHAIR WITH USE OF FWW. PATIENT HAD BOWEL MOVEMENT AND PERFORMED OWN ADL'S. PATIENT AMBULATED BACK FROM TOILET TO BED WITH FWW. PATIENT COMPLAINED OF BILATERAL KNEE WEAKNESS AND PAIN. PAGED DR MENSAH TO NOTIFY, AWAITING RESPONSE.
--- NOTE | 2018-09-05 11:26 | NUR ---
HOSPITALIST AT BEDSIDE DR MENSAH UPDATED ON PATIENT'S STATUS, LABS AND BILATERAL KNEE PAIN AND WEAKNESS. ORDERS RECEIVED AND ENTERED BY DR MENSAH. ORDERS WILL BE CARRIED OUT.
[2018-09-05] MEDS ORDERED: ACETAMINOPHEN 500 MG TAB PO PRN (11:45)
[2018-09-05] MEDS ORDERED: POTASSIUM CHL 20 Meq TABLET PO ONE (11:45)
--- NOTE | 2018-09-05 12:30 | NUR ---
PAIN PATIENT REPORT PAIN TO BILATERAL KNEES. PATIENT MEDICATED ORDERED BY HOSPITALIST - HEAT PADS PROVIDED. WILL CONTINUE TO MONITOR.
--- NOTE | 2018-09-05 14:00 | NUR ---
PAIN MANAGEMENT FOLLOW-UP PATIENT REPORTS "NO PAIN". PATIENT'S SON TAMMY AT BEDSIDE, PATIENT CONVERSING APPROPRIATELY. FALL PRECAUTIONS IN PLACE.
--- NOTE | 2018-09-05 19:00 | NUR ---
OPENING NOTE ASSUMED CARE OF PATIENT AT THIS TIME. REPORT RECEIVED FROM DAY SHIFT RN. POC REVIEWED, HEAD TO TOE ASSESSMENT COMPLETE, SEE INTERVENTION SPREADSHEET FOR COMPLETE DETAILS. PT ALERT AND ORIENT X4. PT ABLE TO VERBALIZE NEEDS. PT CONTINUES TO HAVE GENERALIZED WEAKNESS. VSS. PT ON ROOM AIR. PT ORIENTED TO CALL LIGHT, NOC NURSE. BED LOCKED AND IN LOWEST POSITION, SAFETY PRECAUTIONS IN PLACE. SUCTION AND BVM AT BEDSIDE. WILL MONITOR PT CAREFULLY.
--- NOTE | 2018-09-05 19:30 | NUR ---
PT TEACHING, PT INSTRUCTED NOT TO HET OUR OF BED WITHOUT LETTING NURSE KNOW FOR SAFETY REASONS. NON SKID SOCKS PLACED ON PT. PT VERBALIZED UNDERSTANDING.
--- NOTE | 2018-09-05 19:44 | NUR ---
OOB PT ASSISTED BY ATIF PEREZ TO BEDSIDE CHAIR. NON SKID SOCKS ON FEET BILATERALLY. PT TOLERATED WELL.
--- NOTE | 2018-09-05 20:13 | NUR ---
PT BATHED SELF, GOWN CHANGED. PT TOLERATED WELL.
[2018-09-05] MEDS: POTASSIUM CHL 20 Meq TABLET PO SCH (21:48)
[2018-09-05] MEDS: ATORVASTATIN 20 MG TAB PO SCH (21:48)
[2018-09-06] VITALS (17 sets, daily range): BP systolic 132–172; BP diastolic 57–119
--- NOTE | 2018-09-06 00:16 | NUR ---
PT WALKED 3 LAPS AROUND UNIT ASSISTED BY ATIF PEREZ, PT HOOKED UP TO ICU PORTABLE MONITOR. PT TOLERATED WELL. VSS.
[2018-09-06] MEDS: ALBUTEROL SULF 2.5 MG/0.5ML(0.5%) NEB SOLN NEB SCH ×4 (00:29→19:27)
[2018-09-06] MEDS: IPRATROPIUM BROM 0.5 MG/2.5ML INH SOL NEB SCH ×4 (00:29→19:27)
--- NOTE | 2018-09-06 02:04 | NUR ---
O2 SATS DROPPING INTO 80' WHILE PT SLEEPING. PT PLACED ON 2LTS NC. O2 94% AT THIS TIME.
[2018-09-06 04:34] LABS: Basophils # (auto) 0.1 uL; Basophils % (auto) 0.5 % (0.0-2.0); Eosinophils # (auto) 0.1 uL; Eosinophils % (auto) 0.9 % (0.0-7.0); Hematocrit 30.8 % (41.0-53.0); Hemoglobin 10.4 g/dL (13.5-17.5); Lymphocytes # (auto) 1.5 uL; Lymphocytes % (auto) 13.8 % (10.0-50.0); Mean Corpuscular Hemoglobin 29.2 pg (28.0-32.0); Mean Corpuscular Volume 86.1 fL (80.0-100.0); Monocytes # (auto) 1.4 uL; Monocytes % (auto) 12.4 % (0.0-12.0); Neutrophils # (auto) 8.1 uL; Neutrophils % (auto) 72.4 % (37.0-80.0); Platelet Count (auto) 283 10^3/uL (140-450); Red Blood Cells 3.57 10^6/uL (4.5-5.90); Red Cell Distribution Width 12.9 % (11.8-14.3); White Blood Cell 11.2 10^3/uL (4.4-10.8)
[2018-09-06 04:56] LABS: Potassium 3.3 mmol/L (3.5-5.1)
[2018-09-06 04:59] LABS: BUN/Creatinine Ratio 16.4; Calcium 7.6 mg/dL (8.5-10.1)
[2018-09-06] MEDS: POTASSIUM CHL 20 Meq TABLET PO SCH ×2 (06:22→23:13)
[2018-09-06] MEDS: FUROSEMIDE 40 MG/4 ML VIAL IV SCH ×2 (06:22→18:12)
[2018-09-06] MEDS: hydrALAZINE HCL 25 MG TAB PO SCH ×2 (06:23→23:12)
--- NOTE | 2018-09-06 08:00 | NUR ---
PATIENT ASSISTED OOB TO CHAIR. PT NOTED TO BE WEAK THROUGHOUT BUT WAS ABLE TO TRANSFER FROM BED TO CHAIR. PT STATING HE DOES NOT "FEEL WELL", HE IS STATING HE HAS NOT FEELING GOOD SINCE YESTERDAY. TEMP 98.5., POX READING 85-93% ON ROOM AIR. PLACED PATIENT BACK ON 2L/MIN NC. POX NOW READING 95%. LUNGS COURSE TO BILATERAL LOWER LOBES. SEE PHYSICAL/ NOTES. FREQUENT REMINDING NEEDED TO PLACE O2 BACK ON HE REMOVES FREQUENTLY.
[2018-09-06] MEDS ORDERED: ADENOSINE 89 MG in GIVE UN-DILUTED 0 ML IV STA (08:12)
--- NOTE | 2018-09-06 08:30 | NUR ---
PT NPO FOR STRESS TEST. PATIENT AWARE AND VERBALIZED UNDERSTANDING.
--- NOTE | 2018-09-06 09:57 | NUR ---
I.S TEACHING PATIENT EDUCATED ON PROPER USE OF I.S. PATIENT ABLE TO PROPERLY PERFORM RETURN DEMONSTRATION. PT REACHING 2500ML DURING INSPIRATION. EDUCATED ON REASON AND FREQUENCY. PT VERBALIZED UNDERSTANDING. WILL CONTINUE TO ENCOURAGE EVERY HR WHEN AWAKE.
--- NOTE | 2018-09-06 10:21 | NUR ---
PHYSICAL THERAPY AT BEDSIDE. PT OOB AMBULATED AROUNDS NURSES STATION WITH FWW. PT TOLERATED WELL.
--- NOTE | 2018-09-06 10:51 | NUR ---
TELE BED RECEIVED 232. CHRISTIAN TO CALL TO OBTAIN REPORT.
--- NOTE | 2018-09-06 11:09 | NUR ---
PATIENT TAKEN TO STRESS LAB VIA W/C ON PORTABLE MONITOR AND 02 2LMIN/ NC. NO DISTRESS NOTED. PATIENT TO BE TAKEN TO ROOM 232 POST STRESS TEST. ALL BELONGINGS WITH AND TAKING TO ROOM 232. AWAITING NURSE TO CALLBACK FOR REPORT.
--- NOTE | 2018-09-06 11:35 | NUR ---
REPORT GIVEN TO CHRISTIAN SRIVASTAVA. UPDATED ON PLAN OF CARE. PT TAKEN TO TAKEN TO ROOM 232. RADIOLOGIST NURSE TO PLACE TELE BOX ON.
--- NOTE | 2018-09-06 12:00 | NUR ---
UNABLE TO ADMINISTER MED NEB TO PT AT 1200, PT NOT IN THE ROOM FOR SCHEDULED MED NEB.
--- NOTE | 2018-09-06 12:56 | NUR ---
Nutrition Follow-up Notes Wt.: 106.5 kg as of today Pt's successfully extubated (09/04/18), on oxygen via nasal cannula, asleep, no immediate family member at bedside during rounds this morning. Pt's no signs of distress noted earlier, off from EN support, NPO earlier and likely to resume oral diet with active order for Cardiac: 2 gms Na, Low Chol, Low Fat diet. Est. Needs: 1600 kcal to 2150 kcal (15-20 kcal/kgBW), 86 gms to 107 gms pro (0.8-1.0 gms/kgBW). Will continue to monitor pertinent labs and reassess nutrient needs prn Labs: K 3.3 L, BUN 24 H, Cr 1.46 H, Ca 7.6 L; Alb 1.6 L Skin: Geoffrey scale 18, mod risk, pt with multiple abrasions per RN doc. Pls refer to scoop filler's snote 08/31/18 for further details re: tx plans. GI: Pt had 1 BM yesterday per continuous linter drier operator. PES: Altered nutrition related lab values r/t acute/chronic medical condition aeb elev renal labs, hypocalcemia and severe hypoalbuminemia Partially resolved: Increased nutrient needs r/t current medical condition aeb intubated, sedated, NPO with EN support, severe hypoalbuminemia Obesity r/t excessive PO intake aeb 153% IBW, BMI 36.0 kg/m2 and increased body adiposity Will continue to monitor NPO status/PO intake, skin status, pertinent labs and weight trend. F/u in 3 to 5 days. Rec.: 1.) Resume oral diet when medically appropriate. 2.) If Albumin level continues trending down, consider Prostat 1 pkt BID. 3.) Consider daily MVI with minerals and Asc acid 500 mgs BID. 4.) Refer to RD for further nutrition educ. and weight monitoring upon discharge. 5.) Continue current plan of care.
--- NOTE | 2018-09-06 13:02 | NUR ---
ARRIVAL TO FLOOR Pt just came back from stress test. In bed resting, awake alert and oriented and having lunch. Significant other at bedside. Saline lock, #20 to right forearm flushes well. No distress noted. Addendum: 09/06/18 at 1308 by EMEKA DIAZ RN RN Tele #[id number] at [phone]
[2018-09-06] MEDS: ENOXAPARIN SOD 40 MG/0.4 ML SYRINGE SC SCH (15:08)
[2018-09-06] MEDS: ASPirin-EC 81 mg tab PO SCH (15:08)
[2018-09-06] MEDS: PANTOPRAZOLE 40 MG TAB PO SCH (15:08)
[2018-09-06] MEDS: METOPROLOL TARTRATE 25 MG TAB PO SCH ×2 (15:09→23:09)
--- NOTE | 2018-09-06 15:45 | NUR ---
assessment Patient is a 48 year old male who is alert and oriented. Patients cognitive abilities are intact. Prior to admission patient lived home with family and functioned independently. Patient informed me he is able to care for his own ADLs. Per patient he has no emergency contact. Per patient he has no need for DME. Patient informed me he has no PCP. I informed patient his post discharge needs to be determined prior to discharge. I informed patient he has a right to speak to a social media coordinator regarding all care. I informed patient he has a right to participate in any and all discharge planning. Patient is aware of visiting hours on the hospital floor. I informed patient he has a right to privacy. Patient does not have a POA and advanced directive. I have offered patient information on POA and advanced directives. I informed the patient the advantages and benefits of having an Advanced Directive. Patient verbalized understanding and agreed to discharge plan. Addendum: 09/06/18 at 1547 by Shira PHILLIP Amended: Links added.
--- NOTE | 2018-09-06 16:00 | NUR ---
CENTRAL LINE Removed Central line from Right side of neck. Cut tip and sent to lap. Cleaned site with alcohol and then Applied pressure dressing to site. Patient tolerated it well.
--- NOTE | 2018-09-06 19:16 | NUR ---
Shift report Gave shift report to Donna night RN. Pt resting in bed, bed locked, in low position, rails up x2, call light in reach. No distress noted.
--- NOTE | 2018-09-06 19:30 | NUR ---
Opening Shift Note Assumed care of patient, awake and alert oriented x4. No S/S of distress/SOB or pain noted. Bed is in lowest locked position with call light in reach of the patient and bed rails are up x2. Educated patient that they are on fluid restrictions and water was discarded from the patient after consuming about 2 liters of water according to the day shift nurse. Order about exact number of mls of fluid restriction was not ordered. Will call hospitalist. Instructed on POC and to call for assist PRN.
--- NOTE | 2018-09-06 20:02 | NUR ---
Called hospitalist regarding fluid restrictions: Hospitalist called regarding fluid restrictions and to ask for permission to shower. Patient is ambulatory and alert oriented x4 with no S/S of distress noted. Waiting for call back.
[2018-09-06] MEDS: ATORVASTATIN 20 MG TAB PO SCH (23:10)
[2018-09-06] MEDS: DOXYCYCLINE 100 MG TAB/CAP PO SCH (23:11)
--- NOTE | 2018-09-06 23:30 | NUR ---
Hospitalist called back: Hospitalist called back and was notified about patients fluid restriction but had no exact order for exact mls to be restricted. Hospitalist made aware about mls patient consumed. Hospitalist advised to stop fluid for patient for the rest of the night and to endorse to day shift for exact restriction amount for clarification. Hospitalist approved of patient to take a shower.
--- NOTE | 2018-09-07 | NUR ---
IV insertion IV access obtained, via clean sterile technique by inserting 20 gauge catheter at left AC after 1 attempt(s). IV secured properly. No trauma to site. Patient tolerated well.
[2018-09-07] MEDS: ALBUTEROL SULF 2.5 MG/0.5ML(0.5%) NEB SOLN NEB SCH ×4 (00:27→18:37)
[2018-09-07] MEDS: IPRATROPIUM BROM 0.5 MG/2.5ML INH SOL NEB SCH ×4 (00:27→18:37)
[2018-09-07 05:31] VITALS: BP 138/84
[2018-09-07] MEDS: FUROSEMIDE 40 MG/4 ML VIAL IV SCH ×2 (05:39→17:11)
[2018-09-07] MEDS: hydrALAZINE HCL 25 MG TAB PO SCH ×3 (05:40→21:46)
[2018-09-07 06:13] LABS: Basophils # (auto) 0.1 uL; Basophils % (auto) 0.7 % (0.0-2.0); Eosinophils # (auto) 0.2 uL; Eosinophils % (auto) 1.4 % (0.0-7.0); Hemoglobin 10.6 g/dL (13.5-17.5); Lymphocytes # (auto) 1.5 uL; Mean Corpuscular Hemoglobin 29.4 pg (28.0-32.0); Mean Corpuscular Hgb Conc. 34.2 g/dL (32.0-36.0); Mean Corpuscular Volume 85.9 fL (80.0-100.0); Monocytes # (auto) 1.6 uL; Monocytes % (auto) 14.1 % (0.0-12.0); Neutrophils # (auto) 7.9 uL; Neutrophils % (auto) 70.8 % (37.0-80.0); Nucleated Red Blood Cells % 0.1 %; Platelet Count (auto) 295 10^3/uL (140-450); Red Cell Distribution Width 12.8 % (11.8-14.3); White Blood Cell 11.2 10^3/uL (4.4-10.8)
[2018-09-07 06:17] LABS: BUN/Creatinine Ratio 18.6; Potassium 3.5 mmol/L (3.5-5.1)
--- NOTE | 2018-09-07 07:57 | NUR ---
Closing note: Patient is resting in bed with no S/S of distress or SOB noted. Bed is in lowest locked position with bed rails up x2 and call light is within reach of the patient. Care endorsed to day shift nurse.
[2018-09-07 08:00] VITALS: BP 144/94
--- NOTE | 2018-09-07 08:00 | NUR ---
IV STATUS OLD IV TO RIGHT ARM DISCONTINUED ON CHIEF LOAD DISPATCHER. RN STARTED A NEW IV TO LEFT AC #20 PLACED 09/06/18.
[2018-09-07] MEDS: ENOXAPARIN SOD 40 MG/0.4 ML SYRINGE SC SCH (09:32)
[2018-09-07] MEDS: PANTOPRAZOLE 40 MG TAB PO SCH (09:33)
[2018-09-07] MEDS: ASPirin-EC 81 mg tab PO SCH (09:33)
[2018-09-07] MEDS: POTASSIUM CHL 20 Meq TABLET PO SCH ×2 (09:33→21:41)
[2018-09-07] MEDS: DOXYCYCLINE 100 MG TAB/CAP PO SCH ×2 (09:34→21:41)
[2018-09-07] MEDS: METOPROLOL TARTRATE 25 MG TAB PO SCH ×2 (09:34→21:46)
--- NOTE | 2018-09-07 11:32 | NUR ---
WOUND CARE NOTE: Wound care in to see patient for skin integrity monitoring. Patient has been extubated and now in [facility]/Telemetry unit. Patient is in Rm. 232, walking around his room. His current Geoffrey score is 20. Patient remain wound free other than multi scabbed abrasions to BLE and intact ecchymosis. No further wound care monitoring needed at this time. RECOMMENDATION: Continuation of all wound care orders prescribed by MD, continue with skin/wound preventative plan of care.
[2018-09-07 12:30] VITALS: BP 151/101
[2018-09-07] MEDS ORDERED: LABETALOL HCL 5 MG/ML ML 20ML VIAL IV PRN (14:00)
[2018-09-07 17:00] VITALS: BP 144/77
[2018-09-07 19:52] VITALS: BP 144/77
[2018-09-07] MEDS: ATORVASTATIN 20 MG TAB PO SCH (21:41)
[2018-09-07 22:00] VITALS: BP 146/75
[2018-09-08] MEDS: ALBUTEROL SULF 2.5 MG/0.5ML(0.5%) NEB SOLN NEB SCH ×4 (00:23→20:54)
[2018-09-08] MEDS: IPRATROPIUM BROM 0.5 MG/2.5ML INH SOL NEB SCH ×4 (00:23→20:54)
[2018-09-08 04:49] VITALS: BP 149/78
[2018-09-08 05:34] LABS: Basophils # (auto) 0.1 uL; Basophils % (auto) 1.1 % (0.0-2.0); Eosinophils # (auto) 0.2 uL; Eosinophils % (auto) 1.4 % (0.0-7.0); Hematocrit 33.1 % (41.0-53.0); Hemoglobin 11.1 g/dL (13.5-17.5); Lymphocytes # (auto) 1.7 uL; Lymphocytes % (auto) 15.9 % (10.0-50.0); Mean Corpuscular Hemoglobin 29.5 pg (28.0-32.0); Mean Corpuscular Hgb Conc. 33.5 g/dL (32.0-36.0); Mean Corpuscular Volume 88.2 fL (80.0-100.0); Monocytes # (auto) 1.7 uL; Monocytes % (auto) 15.2 % (0.0-12.0); Neutrophils # (auto) 7.2 uL; Neutrophils % (auto) 66.4 % (37.0-80.0); Nucleated Red Blood Cells % 0.1 %; Platelet Count (auto) 299 10^3/uL (140-450); Red Blood Cells 3.75 10^6/uL (4.5-5.90); White Blood Cell 10.9 10^3/uL (4.4-10.8)
[2018-09-08] MEDS: FUROSEMIDE 40 MG/4 ML VIAL IV SCH ×2 (05:36→17:23)
[2018-09-08] MEDS: hydrALAZINE HCL 25 MG TAB PO SCH ×3 (05:37→21:49)
[2018-09-08 05:58] LABS: Magnesium 2.3 mg/dL (1.6-2.6); Potassium 4.2 mmol/L (3.5-5.1)
[2018-09-08 06:00] LABS: BUN/Creatinine Ratio 20.9
--- NOTE | 2018-09-08 07:10 | NUR ---
Opening Note Received report from night ATIF Fernandez. Pt resting in bed, bed locked and in low pos., rails up x2 and call lorenzo in reach. Denies any pain. No distress noted. Patient wants to see his doctor today. Addendum: 09/08/18 at 1112 by EMEKA DIAZ RN RN PATIENT CONDITION Says he doesn't feel well and has been spitting up blood-tinged sputum. Wants to see the doctor.
[2018-09-08 08:55] VITALS: BP 160/93
[2018-09-08] MEDS: ASPirin-EC 81 mg tab PO SCH (09:46)
[2018-09-08] MEDS: DOXYCYCLINE 100 MG TAB/CAP PO SCH (09:46)
[2018-09-08] MEDS: ENOXAPARIN SOD 40 MG/0.4 ML SYRINGE SC SCH (09:46)
[2018-09-08] MEDS: PANTOPRAZOLE 40 MG TAB PO SCH (09:46)
[2018-09-08] MEDS: POTASSIUM CHL 20 Meq TABLET PO SCH ×2 (09:46→21:43)
[2018-09-08] MEDS: METOPROLOL TARTRATE 25 MG TAB PO SCH ×2 (09:47→21:50)
--- NOTE | 2018-09-08 12:00 | NUR ---
MD VISIT Spoke to Dr Barahona and she wants fluid restriction to be maintained at 1500 ml/24 hours
[2018-09-08 12:54] VITALS: BP 166/114
[2018-09-08] MEDS ORDERED: MORPHINE SULFATE 4 MG/ML SYR/VIAL IV PRN (13:00)
[2018-09-08] MEDS ORDERED: AZITHROMYCIN 500MG/ 250ML 250 ML IV ONE (13:00)
[2018-09-08] MEDS ORDERED: cefTRIAXone 1GM/50ML D5W 50 ML IV ONE (13:00)
--- NOTE | 2018-09-08 13:30 | NUR ---
Respiratory note: PATIENT ORDERED ROOM AIR ABG FOR HOME O2. HE REMAINS WITH AN SPO2 OF 93% ON R/A, NO INDICATION TO DRAW ABG TO TRY AND QUALIFY PATIENT FOR HOME OXYGEN. ATIF GONZALES MADE AWARE.
--- NOTE | 2018-09-08 17:00 | NUR ---
RESP CULTURE SPUTUM SENT TO LAB
[2018-09-08 17:22] VITALS: BP 157/108
--- NOTE | 2018-09-08 19:00 | NUR ---
SHIFT REPORT report given to Night RN Rebecca. Pt resting in bed, bed locked and in low position, call light in reach, rails UP X 2. Significant other at bedside while patient is in shower. Notified EBONY of telemetry off temporarily.
--- NOTE | 2018-09-08 19:56 | NUR ---
Opening Shift Note Assumed care of patient, awake and alert. No S/S of distress/SOB or pain. Instructed on POC and to call for assist PRN, will continue to monitor for changes Q1hr and PRN. at bedside.
[2018-09-08] MEDS: ATORVASTATIN 20 MG TAB PO SCH (21:43)
[2018-09-08 22:00] VITALS: BP 180/92
[2018-09-09] VITALS (7 sets, daily range): BP systolic 135–181; BP diastolic 85–113
[2018-09-09] MEDS: ALBUTEROL SULF 2.5 MG/0.5ML(0.5%) NEB SOLN NEB SCH ×4 (01:08→19:27)
[2018-09-09] MEDS: IPRATROPIUM BROM 0.5 MG/2.5ML INH SOL NEB SCH ×4 (01:08→19:27)
[2018-09-09] MEDS: hydrALAZINE HCL 25 MG TAB PO SCH ×3 (04:25→21:23)
[2018-09-09] MEDS: HYDROcodone-ACET 5/325MG TAB PO PRN ×2 (04:34→21:34)
[2018-09-09] MEDS: LORazepam 0.5 MG TAB PO PRN ×2 (04:35→21:34)
[2018-09-09] MEDS: FUROSEMIDE 40 MG/4 ML VIAL IV SCH (05:24)
--- NOTE | 2018-09-09 05:55 | NUR ---
Respiratory note: PATIENT SEEN FOR HHN TX AND WAS FOUND ON R/A WITH SPO2 OF 88%. PATIENT WAS PLACED ON 2LPM NASAL CANNULA POST TX AND HE WAS EDUCATED ON THE IMPORTANCE OF KEEPING CANNULA IN. SPO2 MAINTAINED AT 95%.
[2018-09-09 06:36] LABS: Basophils # (auto) 0.1 uL; Eosinophils # (auto) 0.1 uL; Hemoglobin 11.1 g/dL (13.5-17.5); Lymphocytes # (auto) 1.8 uL; Lymphocytes % (auto) 16.2 % (10.0-50.0); Mean Corpuscular Hemoglobin 30.1 pg (28.0-32.0); Mean Corpuscular Hgb Conc. 34.6 g/dL (32.0-36.0); Mean Corpuscular Volume 86.9 fL (80.0-100.0); Monocytes # (auto) 1.8 uL; Monocytes % (auto) 16.6 % (0.0-12.0); Neutrophils # (auto) 7.1 uL; Neutrophils % (auto) 65.2 % (37.0-80.0); Nucleated Red Blood Cells % 0.1 %; Platelet Count (auto) 313 10^3/uL (140-450); Red Blood Cells 3.68 10^6/uL (4.5-5.90); Red Cell Distribution Width 13.2 % (11.8-14.3); White Blood Cell 10.9 10^3/uL (4.4-10.8)
[2018-09-09 06:41] LABS: BUN/Creatinine Ratio 21.4; Calcium 8.1 mg/dL (8.5-10.1); Potassium 4.3 mmol/L (3.5-5.1)
--- NOTE | 2018-09-09 07:50 | NUR ---
Opening Shift Note Assumed care of patient, Patient comfortably sleeping. Breath sounds even and unlabored. No S/S of distress/SOB or pain noted. Bed at lowest position and call light within reach. Will continue to monitor for changes Q1hr and PRN.
[2018-09-09] MEDS: cefTRIAXone 1GM/50ML D5W 50 ML IV SCH (09:42)
[2018-09-09] MEDS: AZITHROMYCIN 500MG/ 250ML 250 ML IV SCH (09:42)
[2018-09-09] MEDS: POTASSIUM CHL 20 Meq TABLET PO SCH (09:43)
[2018-09-09] MEDS: ASPirin-EC 81 mg tab PO SCH (09:43)
[2018-09-09] MEDS: ENOXAPARIN SOD 40 MG/0.4 ML SYRINGE SC SCH (09:46)
[2018-09-09] MEDS: PANTOPRAZOLE 40 MG TAB PO SCH (09:46)
[2018-09-09] MEDS: METOPROLOL TARTRATE 25 MG TAB PO SCH ×2 (09:46→21:24)
--- NOTE | 2018-09-09 11:30 | NUR ---
collected and sent sputum culture to lab.
[2018-09-09] MEDS ORDERED: guaiFENesin-DM 100/10mg/5ml SYR PO PRN (11:45)
[2018-09-09] MEDS: NIFEdipine ER 30 MG TAB PO SCH (11:49)
--- NOTE | 2018-09-09 15:14 | NUR ---
Nutrition Follow-up Notes Wt.: 94.8 kg based on bed scale as of today Pt's in isolation room, asleep, no immediate family member at bedside when rounded this morning. Pt's no signs of distress noted earlier, currently on Cardiac: 2 gms Na, Low Chol, Low Fat diet with adequate PO intake aeb 75% ave. consumed meals (x6) in last 2.5 days. Noted pt's for active Pulmonary consult. Est. Needs: 1600 kcal to 2150 kcal (15-20 kcal/kgBW), 86 gms to 107 gms pro (0.8-1.0 gms/kgBW). Will continue to monitor pertinent labs and reassess nutrient needs prn Labs: Na 135 L, BUN36 H, Cr 1.68 H, Ca 8.1 L; Alb 1.6 L Skin: Geoffrey scale 21, low risk, pt's left hip bruised, with multiple abrasions per RN doc. Pls refer to loss prevention representative's notes 09/07/18 for further details. GI: Pt had 2x BM this morning per ward clerk. PES: Altered nutrition related lab values r/t acute/chronic medical condition aeb elev renal labs, hypocalcemia and severe hypoalbuminemia Partially resolved: Increased nutrient needs r/t current medical condition aeb intubated, sedated, NPO with EN support, severe hypoalbuminemia Obesity r/t excessive PO intake aeb 153% IBW, BMI 36.0 kg/m2 and increased body adiposity Will continue to monitor PO intake, skin status, pertinent labs and weight trend. F/u in 3 to 5 days. Rec.: 1.) If Albumin level continues trending down, consider Prostat 1 pkt BID. 2.) Consider daily MVI with minerals and Asc acid 500 mgs BID. 3.) Continue close supervision with meals. 4.) Refer to RD for further nutrition educ. and weight monitoring upon discharge. 5.) Continue current plan of care.
--- NOTE | 2018-09-09 16:40 | NUR ---
Per DRY HOUSE OPERATOR patients O2 saturations are 87% and is refusing to wear NC. Patient has been educated. Will continue to monitor.
[2018-09-09] MEDS ORDERED: FUROSEMIDE 40 MG TAB PO SCH (18:00)
--- NOTE | 2018-09-09 19:10 | NUR ---
end of shift note Patient comfortably sleeping in bed. Bed at lowest position, call light within reach. Patient still refuses NC. Oxygen saturations at 90%. Educated patient on the importance of wearing Oxygen NC. Will endorse acre to RANDELL RN.
--- NOTE | 2018-09-09 20:00 | NUR ---
Opening Shift Note Assumed care of patient, awake and alert. No S/S of distress/SOB or pain. Instructed on POC and to call for assist PRN, will continue to monitor for changes Q1hr and PRN.Educated by the R.t regarding his oxygen that he needs to wear it, to prevent low oxygen saturation, and agreed.
[2018-09-09] MEDS ORDERED: FUROSEMIDE 40 MG TAB PO ONE (21:15)
[2018-09-09] MEDS: ATORVASTATIN 20 MG TAB PO SCH (21:22)
[2018-09-10] MEDS: ALBUTEROL SULF 2.5 MG/0.5ML(0.5%) NEB SOLN NEB SCH ×4 (01:07→18:00)
[2018-09-10] MEDS: IPRATROPIUM BROM 0.5 MG/2.5ML INH SOL NEB SCH ×4 (01:07→18:00)
[2018-09-10 05:00] VITALS: BP 129/76
[2018-09-10 06:45] LABS: Basophils # (auto) 0.1 uL; Basophils % (auto) 0.7 % (0.0-2.0); Eosinophils # (auto) 0.1 uL; Eosinophils % (auto) 1.1 % (0.0-7.0); Hematocrit 31.8 % (41.0-53.0); Lymphocytes # (auto) 1.6 uL; Lymphocytes % (auto) 15.6 % (10.0-50.0); Mean Corpuscular Hgb Conc. 34.5 g/dL (32.0-36.0); Mean Corpuscular Volume 87.2 fL (80.0-100.0); Monocytes # (auto) 1.3 uL; Monocytes % (auto) 13.1 % (0.0-12.0); Neutrophils % (auto) 69.5 % (37.0-80.0); Nucleated Red Blood Cells % 0.1 %; Platelet Count (auto) 329 10^3/uL (140-450); Red Blood Cells 3.65 10^6/uL (4.5-5.90); Red Cell Distribution Width 13.3 % (11.8-14.3); White Blood Cell 10.1 10^3/uL (4.4-10.8)
[2018-09-10 06:52] LABS: BUN/Creatinine Ratio 22.8; Calcium 8.2 mg/dL (8.5-10.1); Potassium 4.2 mmol/L (3.5-5.1)
--- NOTE | 2018-09-10 07:30 | NUR ---
Opening Shift Note Assuming care of patient at this time. Patient is resting in bed with his eyes closed. Patient does not show any signs or symptoms of distress or shortness of breath. Patient does not appear to be in any pain at this time. Patient is in bed, with the bed locked and lowered with side rails up x2. Will continue to monitor.
--- NOTE | 2018-09-10 07:41 | NUR ---
Report given to Palmira Birmingham to assume care, patient is resting no distress.
[2018-09-10 08:30] VITALS: BP 148/77
[2018-09-10] MEDS: cefTRIAXone 1GM/50ML D5W 50 ML IV SCH (08:57)
[2018-09-10] MEDS: AZITHROMYCIN 500MG/ 250ML 250 ML IV SCH (10:26)
[2018-09-10] MEDS: hydrALAZINE HCL 25 MG TAB PO SCH ×2 (10:28→21:53)
[2018-09-10] MEDS: METOPROLOL TARTRATE 25 MG TAB PO SCH ×2 (10:29→21:56)
[2018-09-10] MEDS: PANTOPRAZOLE 40 MG TAB PO SCH (10:30)
[2018-09-10] MEDS: FUROSEMIDE 40 MG TAB PO SCH (10:31)
[2018-09-10] MEDS: POTASSIUM CHL 20 Meq TABLET PO SCH (10:32)
--- NOTE | 2018-09-10 12:08 | NUR ---
Re: Oxygen Saturation on Room Air Oxygen saturation on room air is 87% at rest. Dr. Fischer is aware.
[2018-09-10 12:28] VITALS: BP 122/73
[2018-09-10 14:02] VITALS: BP 122/73
[2018-09-10 16:47] VITALS: BP 138/81
[2018-09-10] MEDS: NIFEdipine ER 30 MG TAB PO SCH (18:16)
--- NOTE | 2018-09-10 18:57 | NUR ---
Re: Closing Shift Note Patient is resting in bed at this time. Patient denies pain. Patient is requesting ice cream, called to dietary for more ice cream. at bedside. Will endorse care to the molecular technologist RN.
--- NOTE | 2018-09-10 19:50 | NUR ---
PT IS NOT IN ROOM AT THIS TIME FOR MED NEB TX. PT IS OUTSIDE SMOKING.
[2018-09-10] MEDS: ATORVASTATIN 20 MG TAB PO SCH (21:47)
[2018-09-10 22:00] VITALS: BP 129/70
[2018-09-11] MEDS: ALBUTEROL SULF 2.5 MG/0.5ML(0.5%) NEB SOLN NEB SCH ×3 (00:06→12:17)
[2018-09-11] MEDS: IPRATROPIUM BROM 0.5 MG/2.5ML INH SOL NEB SCH ×3 (00:06→12:17)
[2018-09-11 05:00] VITALS: BP 128/59
--- NOTE | 2018-09-11 06:22 | NUR ---
Respiratory note:SCHED MED NEB TX REFUSED: PATIENT REFUSE TX AT THIS TIME, WOULD LIKE TO CONTINUE SLEEPING. SPO2 96% @ 2 L NC, HR 92, RR 16, B/S CLEAR A/P LETTY T/O. WILL CONTINUE TO MONITOR PATIENT, PER PATIENT NO SOB AND NO SS RESP DISTRESS NOTED. INFORMED TO CONTACT RN FOR SOB.
[2018-09-11 06:25] LABS: Basophils # (auto) 0.1 uL; Basophils % (auto) 0.9 % (0.0-2.0); Eosinophils # (auto) 0.2 uL; Eosinophils % (auto) 2.3 % (0.0-7.0); Hemoglobin 10.9 g/dL (13.5-17.5); Lymphocytes # (auto) 1.7 uL; Mean Corpuscular Hemoglobin 29.5 pg (28.0-32.0); Mean Corpuscular Hgb Conc. 34.1 g/dL (32.0-36.0); Mean Corpuscular Volume 86.5 fL (80.0-100.0); Monocytes # (auto) 1.4 uL; Monocytes % (auto) 16.3 % (0.0-12.0); Neutrophils # (auto) 5.2 uL; Neutrophils % (auto) 60.5 % (37.0-80.0); Nucleated Red Blood Cells % 0.1 %; Platelet Count (auto) 324 10^3/uL (140-450); Red Cell Distribution Width 13.4 % (11.8-14.3); White Blood Cell 8.6 10^3/uL (4.4-10.8)
--- NOTE | 2018-09-11 07:31 | NUR ---
Report given to Palmira Patterson to assume care.
--- NOTE | 2018-09-11 08:00 | NUR ---
Opening Shift Note Assumed care of patient, awake and alert. No S/S of distress/SOB or pain. Instructed on POC and to call for assist PRN, will continue to monitor for changes Q1hr and PRN. Bed is in the lowest position and call light is within reach
[2018-09-11] MEDS: cefTRIAXone 1GM/50ML D5W 50 ML IV SCH (08:34)
[2018-09-11 08:48] LABS: Albumin 2.3 g/dL (3.4-5.0); Potassium 4.2 mmol/L (3.5-5.1)
[2018-09-11 08:53] LABS: Bilirubin, Total 0.5 mg/dL (0.2-1.0); Total Protein 8.1 g/dL (6.4-8.2)
[2018-09-11 09:00] VITALS: BP 114/72
[2018-09-11] MEDS: METOPROLOL TARTRATE 25 MG TAB PO SCH (09:19)
[2018-09-11] MEDS: NIFEdipine ER 30 MG TAB PO SCH (09:20)
[2018-09-11] MEDS: POTASSIUM CHL 20 Meq TABLET PO SCH (09:20)
[2018-09-11] MEDS: PANTOPRAZOLE 40 MG TAB PO SCH (09:20)
[2018-09-11] MEDS: FUROSEMIDE 40 MG TAB PO SCH (09:20)
--- NOTE | 2018-09-11 09:20 | NUR ---
Tele monitor removed per doctor's order
--- NOTE | 2018-09-11 09:20 | NUR ---
Tele monitor returned to EBONY via bullet
[2018-09-11] MEDS ORDERED: LINEZOLID 600MG/300ML 300 ML IV SCH (10:00)
[2018-09-11] MEDS ORDERED: HYDROcodone-ACET 5/325MG TAB PO PRN (10:15)
--- NOTE | 2018-09-11 10:15 | NUR ---
IV insertion IV access obtained, via clean sterile technique by inserting 20 gauge catheter at left hand after 1 attempt(s). IV secured properly. No trauma to site. Patient tolerated well.
--- NOTE | 2018-09-11 10:22 | NUR ---
Respiratory note: ABG CX: PER DR. MENSAH PATIENT NOT READY FOR DISCHARGE TO DISCONTINUE ABG FOR NOW SHE WILL PLACE NEW ORDER WHEN PATIENT IS DISCHARGE.
[2018-09-11] MEDS ORDERED: AZITHROMYCIN 250 MG TAB PO ONE (10:30)
[2018-09-11] MEDS ORDERED: AMOXICILLIN/CLAVUL 875 MG TAB PO ONE (10:30)
[2018-09-11] MEDS ORDERED: HYDR-4296 PO (10:54)
[2018-09-11] MEDS ORDERED: MET25T PO (10:54)
[2018-09-11] MEDS ORDERED: ATOR20TA50 PO (10:54)
[2018-09-11] MEDS ORDERED: FURO40TA4 PO (10:54)
[2018-09-11] MEDS ORDERED: PANT40T PO (10:54)
[2018-09-11] MEDS ORDERED: NIF30XLT PO (10:54)
[2018-09-11] MEDS ORDERED: POTA20TA53 PO (10:54)
[2018-09-11] MEDS ORDERED: AMOX500T86 PO (10:57)
[2018-09-11] MEDS ORDERED: AZIT500T4 PO (10:57)
[2018-09-11] MEDS: hydrALAZINE HCL 25 MG TAB PO SCH (11:04)
[2018-09-11] MEDS ORDERED: MICAFUNGIN SODIUM 100 MG in SODIUM CHL 0.9% 100 ML IV SCH (12:00)
[2018-09-11 12:59] VITALS: BP 114/72
[2018-09-11 13:14] VITALS: BP 114/72
--- NOTE | 2018-09-11 13:40 | NUR ---
Discharge instructions given as ordered. Encourage to follow up with PCP as instructed. All questions and concerns addressed. Patient verbalized understanding. Medication reconciliation form completed and copy given to patient. No Home medications held in Pharmacy returned to patient, and no needed vaccines. IV removed with catheter intact, pressure dressing applied.
[2018-09-11] MEDS ORDERED: MEROPENEM 1GM IVPB 100 ML IV SCH (14:00)
--- NOTE | 2018-09-11 14:00 | NUR ---
Patient taken to vehicle with all personal belongings, accompanied by staff and family member. Patient refuses wheelchair at this time. No distress noted at time of departure.
== END 2018-09-11 14:04 | disposition home or self-care (01) | DRG 720 ==
LOC: ER 14:50 → TELE 16:38 → ICU WEST 08-30 19:27 → TELE-EAST 09-06 11:12 → EAST 09-11 09:16
PROVIDERS: ADMIT Internal Medicine; ATTEND Internal Medicine
PROC: 5A09357 Assistance with Respiratory Ventilation, Less than 24 Consecutive Hours, Continuous Positive Airway Pressure (ICD-10-PCS; 2018-08-29)
PROC: 5A1955Z Respiratory Ventilation, Greater than 96 Consecutive Hours (ICD-10-PCS; principal; 2018-08-30)
PROC: 0BH17EZ Insertion of Endotracheal Airway into Trachea, Via Natural or Artificial Opening (ICD-10-PCS; 2018-08-30)
PROC: 05H533Z Insertion of Infusion Device into Right Subclavian Vein, Percutaneous Approach (ICD-10-PCS; 2018-08-31)
PROC: 0W993ZZ Drainage of Right Pleural Cavity, Percutaneous Approach (ICD-10-PCS; 2018-09-02)
DX: A41.9 Sepsis, unspecified organism (principal); I21.4 Non-ST elevation (NSTEMI) myocardial infarction; E43 Unspecified severe protein-calorie malnutrition; N17.0 Acute kidney failure with tubular necrosis; J96.01 Acute respiratory failure with hypoxia; I50.31 Acute diastolic (congestive) heart failure; J18.9 Pneumonia, unspecified organism; I13.0 Hypertensive heart and chronic kidney disease with heart failure and stage 1 through stage 4 chronic kidney disease, or unspecified chronic kidney disease; L03.116 Cellulitis of left lower limb; L03.115 Cellulitis of right lower limb; E87.1 Hypo-osmolality and hyponatremia; F15.10 Other stimulant abuse, uncomplicated; E78.5 Hyperlipidemia, unspecified; F17.210 Nicotine dependence, cigarettes, uncomplicated; E66.01 Morbid (severe) obesity due to excess calories; E66.9 Obesity, unspecified; R73.9 Hyperglycemia, unspecified; Z82.49 Family history of ischemic heart disease and other diseases of the circulatory system; Z22.322 Carrier or suspected carrier of Methicillin resistant Staphylococcus aureus; Z68.31 Body mass index [BMI] 31.0-31.9, adult
CPT/HCPCS: 10022; 36415; 36600; 71045; 71046; 71250; 76604; 76942; 78452; 80048; 80053; 80061; 80202; 80307; 81001; 82040; 82550; 82570; 82805; 82962; 83605; 83615; 83735; 83880; 84156; 84300; 84443; 84484; 85007; 85025; 85027; 85610; 85652; 85730; 86141; 86703; 87040; 87070; 87081; 87086; 87205; 87804; 89051; 93005; 93017; 93306; 94002; 94003; 94640; 94660; 96361; 96365; 96375; 97110; 97116; 97163; 97530; A6257; G0378; J0153; J0330; J0610; J0696; J1815; J1956; J2185; J2248; J2250; J2704; J3490; J7060

== ENCOUNTER 2018-11-05 16:38 | Emergency (ER) | payer MEDICAID ==
[~2018-11-05] VITALS: Ht 177.8 cm; Wt 95.3 kg
[~2018-11-05 16:38] MED LIST: AMOX500T86 PO; ATOR20TA50 PO; AZIT500T4 PO; FURO40TA4 PO; HYDR-4296 PO; MET25T PO; NIF30XLT PO; PANT40T PO; POTA20TA53 PO
[2018-11-05 18:29] VITALS: BP 168/88
[2018-11-05] MEDS: cefTRIAXone SOD 1,000 MG VL IM ONE (19:15)
== END 2018-11-05 20:20 | disposition home or self-care (01) ==
LOC: ER 16:46
DX: L02.416 Cutaneous abscess of left lower limb (principal); I11.0 Hypertensive heart disease with heart failure; I50.9 Heart failure, unspecified; F17.210 Nicotine dependence, cigarettes, uncomplicated; F12.90 Cannabis use, unspecified, uncomplicated; F15.90 Other stimulant use, unspecified, uncomplicated; Z79.899 Other long term (current) drug therapy
CPT/HCPCS: 96372; 99283; J0696

== ENCOUNTER 2024-09-19 15:26 | Emergency (ER) | payer MEDICAID ==
[~2024-09-19] VITALS: Ht 177.8 cm; Wt 110.0 kg
[~2024-09-19 15:26] MED LIST changes: -AZIT500T4 PO; +AZIT500T66 PO; -HYDR-4296 PO; +HYDR25TA88 PO; -NIF30XLT PO; +NIFE1TAB36 PO; +POTA-220 PO; -POTA20TA53 PO
[2024-09-19 16:06] VITALS: BP 157/111; TEMP 98
[2024-09-19 16:08] VITALS: PULSE 70; RESP 17; O2SAT 98
[2024-09-19] MEDS: IBUPROFEN 800 MG TAB PO ONE (16:10)
[2024-09-19] MEDS: ONDANSETRON ODT 4 MG TAB PO ONE (16:19)
[2024-09-19] MEDS: TETANUS-DIPTH-ACEL PERTUSSIS 0.5ML SYR Tdap IM ONE (16:19)
--- NOTE | 2024-09-19 16:23 | DVH ---
CLINICAL INDICATION: Ring finger tip partial amputation TECHNIQUE: XY L HAND 3V XRAY Comparison: None FINDINGS/IMPRESSION: : 1. Comminuted displaced fracture of the left 4th finger distal phalanx with open wound, consistent wi th open fracture. 2. No other fractures are identified about the left hand. 3. 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
[2024-09-19] MEDS: LIDOCAINE 1% HCL (LOCAL ANESTH.) INJ 20ML MDV ONE (17:07)
[2024-09-19] MEDS: LIDOCAINE 1% HCL (LOCAL ANESTH.) INJ 20ML MDV ID ONE (17:07)
[2024-09-19] MEDS ORDERED: IBUP-1455 PO (17:57)
[2024-09-19] MEDS ORDERED: BACIOIN15 TOP (17:57)
[2024-09-19] MEDS ORDERED: CEPH500C PO (17:57)
[2024-09-19] MEDS ORDERED: HYDR-4902 PO (17:57)
--- NOTE | 2024-09-19 17:58 | ED.PDOC ---
HPI Comments This patient is a pleasant but morbidly obese 54-year-old male who arrives the ED today for evaluation of left-sided middle and ring finger laceration that occurred approximately 1/2 hour prior to arrival. Patient states he was using a skill saw when he cut his left hand. Patient's distal ring finger reveals a near-complete amputation just proximal to the cuticle bed. Bleeding was controlled at time of arrival. Patient's tetanus is not up-to-date. Chief Complaint: Laceration Time Seen by MD: 15:41 Primary Care Provider: ? Reviewed Notes: Nurses Notes Allergies: Coded Allergies: NO KNOWN ALLERGIES (Unverified , 08/29/18) Home Meds Active Scripts Amoxicillin & Pot Clavulanate (Augmentin) 500 Mg Tab, 1 TAB PO BID, #10 TAB Prov:HAYDEE MENSAH MD 09/11/18 Azithromycin (Azithromycin) 500 Mg Tab, 1 TAB PO DAILY, #5 TAB Prov:HAYDEE MENSAH MD 09/11/18 Potassium Chloride (Klor-Con M20) 20 Meq Tab, 10 MEQ PO DAILY for 30 Days, #15 TAB Prov:HAYDEE MENSAH MD 09/11/18 Pantoprazole Sodium Sesquihydr (Pantoprazole Sodium) 40 Mg Tab, 40 MG PO DAILY for 30 Days, #30 TAB Prov:HAYDEE MENSAH MD 09/11/18 Nifedipine (Nifedipine ER) 30 Mg Tab, 90 MG PO DAILY for 30 Days, #90 TAB Prov:HAYDEE MENSAH MD 09/11/18 Metoprolol Tartrate (Lopressor) 25 Mg Tb, 50 MG PO BID for 30 Days Prov:HAYDEE MENSAH MD 09/11/18 Hydralazine Hcl (Hydralazine Hcl) 25 Mg Tab, 50 MG PO Q12H for 30 Days, #120 TAB Prov:HAYDEE MENSAH MD 09/11/18 Furosemide (Furosemide) 40 Mg Tab, 40 MG PO DAILY for 30 Days, #30 TAB Prov:HAYDEE MENSAH MD 09/11/18 Atorvastatin Calcium (ATORVASTATIN CALCIUM) 20 Mg Tab, 20 MG PO HS for 30 Days, #30 TAB Prov:HAYDEE MENSAH MD 09/11/18 Information Source: Patient Mode of Arrival: Ambulatory Severity: Severe Severity of Laceration: Deformity, Controlled Bleeding Complexity: Complex Timing: Minutes Prehospital treatment: None Laceration Location: Digit #3, Digit #4 Mechanism: Metal Last Tetanus: > 5 Years Laceration Length (cm): 2 Skin Type: Irregular Depth of Injury: Skin, Mucosa, SQ, Muscle, Director Stage: Moderate Discharge: Bloody Associated Signs and Symptoms: Foreign Body Past Medical History PAST MEDICAL HISTORY: CHF, HTN Surgical History: Tonsillectomy Family History Family History: Unknown Social History Smoker: Cigarettes Alcohol: Denies ETOH Use Drugs: Marijuana, Methamphetamine Lives In: Home Constitutional: denies: chills, diaphoresis, fatigue, fever, malaise, sweats, weakness, others EENTM: denies: blurred vision, double vision, ear bleeding, ear discharge, ear drainage, ear pain, ear ringing, eye pain, eye redness, hearing loss, mouth pain, mouth swelling, nasal discharge, nose bleeding, nose congestion, nose pain, photophobia, tearing, throat pain, throat swelling, voice changes, others Respiratory: denies: cough, hemoptysis, orthopnea, SOB at rest, shortness of breath, SOB with excertion, stridor, wheezing, others Cardiovascular: denies: chest pain, dizzy spells, diaphoresis, Dyspnea on exertion, edema, irregular heart beat, left arm pain, lightheadedness, palpita tions, PND, syncope, others Gastrointestinal: denies: abdomen distended, abdominal pain, blood streaked flori wels, constipated, diarrhea, dysphagia, difficulty swallowing, hematemesis, melena, nausea, poor appetite, poor fluid intake, rectal bleeding, rectal pain, vomiting, others Genitourinary: denies: burning, dysuria, flank pain, frequency, hematuria, incontinence, penile discharge, penile sore, pain, testicle pain, testicle swelling, urgency, others Neurological: denies: dizziness, fainting, headache, left sided numbness, left sided weakness, numbness, paresthesia, pre-existing deficit, right sided numbness, right sided weakness, seizure, speech problems, tingling, tremors, weakness, others Musculoskeletal: denies: back pain, gout, joint pain, joint swelling, muscle pain, muscle stiffness, neck pain, others Integumetry: reports: laceration (Laceration to distal aspect of left middle finger and near complete tip amputation of distal left ring finger.); denies: bruises, change in color, change in hair/nails, dryness, lesions, lumps, rash, wounds, others Hematologic/Lymphatic: denies: anemia, blood clots, easy bleeding, easy bruising, swollen glands, others Endocrine: denies: excessive hunger, excessive sweating, excessive thirst, excessive urination, flushing, intolerance to cold, intolerance to heat, unexplained weight gain, unexplained weight loss, others Psychiatric: denies: anxiety, bipolar disorder, depression, hopeless, panic disorder, schizophrenia, sleepless, suicidal, others Physical Exam General Appearance: Moderate Distress (Due to finger pain concerns.), Obese HEENT: Normal ENT Inspection, Pharynx Normal, TMs Normal Neck: Full Range of Motion, Non-Tender, Normal, Normal Inspection Respiratory: Chest Non-Tender, Lungs Clear, No Accessory Muscle Use, No Respiratory Distress, Normal Breath Sounds Cardiovascular: No Edema, No JVD, No Murmur, No Gallop, Normal Peripheral Pulses, Regular Rate/Rhythm Breast Exam: Deferred Gastrointestinal: No Organomegaly, Non Tender, No Pulsatile Mass, Normal Bowel Sounds, Soft Genitalia: Deferred Pelvic: Deferred Rectal: Deferred Extremities: Other (Patient displays a near-complete tip amputation to the distal aspect of the left ring finger proximal to the cuticle bed. Comminution expected. No active bleed. Distal aspect of left middle finger reveals laceration that extends through the palmar aspect of the finger up to the medial aspect from the finger. No tendon or ligament involvement. Bleeding has cont rolled.) Neurologic: Alert, No Motor Deficits, Normal Affect, Normal Mood, No Sensory Deficits Cerebellar Function: Normal Reflexes: Normal Skin: Dry, Normal Color, Warm Lymphatic: No Adenopathy Was a procedure done? Was a procedure done?: Yes Sedation Sedation?: No Other Procedure Notes 9 cc in total of 1% lidocaine was utilized for digital block of the left distal 3rd and 4th finger. Sterile field was placed. Copious irrigation performed. Distal middle finger required nine 4-0 Ethilon sutures to close the wound. Minimal blood loss. Distal ring finger required a completed amputation. Bone fragments were removed from the comminuted fracture of the distal phalanx. Six 4-0 Ethilon approximation sutures were utilized to close the wound in a pseudo pursestring fashion. Minimal blood loss. SurgiSeal as well as clean dressing was applied to both wounds. Finger splint was placed. Patient tolerated procedure well. Differential diagnosis Generic Laceration: Other (Finger fracture, finger laceration, finger tip amputation) X-Ray, Labs, Meds, VS Vital Signs Date Time Temp Pulse Resp B/P (MAP) Pulse Ox O2 Delivery O2 Flow Rate FiO2 09/19/24 16:08 70 17 98 Room Air* 0 21 09/19/24 16:06 70 17 98 Room Air 09/19/24 16:06 98.0 70 17 157/111 (126) 98 98.0 09/19/24 15:36 98.2 74 18 156/93 (114) 96 Current Medications Medications (Trade) Dose Ordered Sig/Magalie Route Start Time Stop Time Status Last Admin Ibuprofen (Motrin Tablet) 800 mg ONCE ONCE PO 09/19/24 16:00 09/19/24 16:01 DC 09/19/24 16:10 Diphtheria/ Tetanus/Acell Pertussis (Boostrix T-Dap) 0.5 ml ONCE ONCE IM 09/19/24 16:15 09/19/24 16:16 DC 09/19/24 16:19 X-Ray, Labs, Meds, VS Comment All studies performed the ED were evaluated by me personally. Imaging studies confirmed a comminuted fracture of the distal left ring finger phalanx. I contacted the hand specialist at [facility], Dr. Doe, and discuss the patient's presentation as well as advised him on any closing procedures. Dr. Doe agreed with my assessment and evaluation and stated that would be their course of action as well. Advised patient utilize antibiotics as directed. Advised patient to return to ED in five days for re-evaluation. Patient should return in 10 days for suture removal. Time of 1ST Reevaluation: 17:54 Reevaluation 1ST: Improved Consultation: PCP Patient Education/Counseling: Diagnosis, Treatment Family Education/Counseling: Diagnosis, Treatment Departure 1 Departure Time of Disposition: 17:54 Impression: Primary Impression: Amputation of finger tip Additional Impression: Finger laceration Disposition: 01 HOME / SELF CARE / HOMELESS Condition: Stable Additional Instructions: Advised patient utilize antibiotics as directed and pain medication as needed. Patient should return to ED or primary care provider in five days for re- evaluation. Patient should return to ED and or primary care provider in 10 days for re-evaluation and probable suture removal. e-Prescriptions Bacitracin Base (Bacitracin) 500 Unit/Gm Oin 500 UNIT TOP DAILY, #30 GM Prov: LISETH VALENTIN PAC 09/19/24 Hydrocodone-Acetaminophen (Hydrocodone Bitartrate/AC 5-325 mg) 1 Tab Tab 1 TAB PO Q6HP PRN, #30 TAB Prov: LISETH VALENTIN PAC 09/19/24 Ibuprofen Micronized (Ibuprofen) 800 Mg Tab 800 MG PO Q8HP PRN, #30 TAB Prov: LISETH VALENTIN PAC 09/19/24 Cephalexin Monohydrate (Cephalexin) 500 Mg Cap 1 CAP PO QID for 10 Days, #40 CAP Prov: LISETH VALENTIN PAC 09/19/24 Discharged With: Self, Friend Critical Care Note Critical Care Time?: No Stability Stability form required: No Heart Score Heart Score: Heart Score Response (Comments) Value History N/A 0 EKG N/A 0 Age N/A 0 Risk Factors N/A 0 Troponin N/A 0 Total 0 LISETH VALENTIN PAC Sep 19, 2024 17:58
[2024-09-20] MEDS ORDERED: [UNRECOGNIZED DRUG - CODE] EX (15:34)
== END 2024-09-19 18:20 | disposition home or self-care (01) ==
LOC: ER 15:26
DX: S62.635A Displaced fracture of distal phalanx of left ring finger, initial encounter for closed fracture (principal); S61.213A Laceration without foreign body of left middle finger without damage to nail, initial encounter; I11.0 Hypertensive heart disease with heart failure; I50.9 Heart failure, unspecified; F17.210 Nicotine dependence, cigarettes, uncomplicated; F12.10 Cannabis abuse, uncomplicated; F15.10 Other stimulant abuse, uncomplicated; Z79.899 Other long term (current) drug therapy; Z90.89 Acquired absence of other organs; W26.8XXA Contact with other sharp object(s), not elsewhere classified, initial encounter; Y93.89 Activity, other specified; Y92.89 Other specified places as the place of occurrence of the external cause; Y99.8 Other external cause status
CPT/HCPCS: 12001; 29130; 73130; 90471; 90715; 99283; J2003

== ENCOUNTER 2024-09-25 14:41 | Emergency (ER) | payer MEDICAID, OTHER ==
[~2024-09-25] VITALS: Ht 177.8 cm; Wt 112.3 kg
[~2024-09-25 14:41] MED LIST changes: +BACIOIN15 TOP; +CEPH500C PO; +HYDR-4902 PO; +IBUP-1455 PO; +[UNRECOGNIZED DRUG - CODE] EX
[2024-09-25 15:10] VITALS: BP 142/88; PULSE 63; RESP 18; O2SAT 98
--- NOTE | 2024-09-25 15:27 | ED.PDOC ---
History of Present Illness HPI Comments 54 y/o M, presents to the ED for CC of s/p wound check. Patient states, he was last seen at [facility] on 09/20/24 for left 4th digit distal tip amputation and is here for a follow up consultation. Patient relays, that he has been complaint with all post procedure care and medications. Patient denies fever, hand numbness, arm weakness, or tingling of the left arm. No other symptoms or modifying factors at this time. Vital signs were stable on arrival Chief Complaint: Wound Check Time Seen by MD: 03:20 Primary Care Provider: ? Reviewed Notes: Nurses Notes, Medications, Allergies Allergies: Coded Allergies: NO KNOWN ALLERGIES (Unverified , 08/29/18) Home Meds Active Scripts Microfibrillar Collagen Hemost (Surgicel Fibrillar Absorb) 4 " Pad, 4 " EX DAILY, #10 PAD Prov:LISETH VALENTIN PAC 09/20/24 Bacitracin Base (Bacitracin) 500 Unit/Gm Oin, 500 UNIT TOP DAILY, #30 GM Prov:LISETH VALENTIN PAC 09/20/24 Ibuprofen Micronized (Ibuprofen) 800 Mg Tab, 800 MG PO Q8HP PRN, #30 TAB Prov:LISETH VALENTIN PAC 09/20/24 Hydrocodone-Acetaminophen (Hydrocodone Bitartrate/AC 5-325 mg) 1 Tab Tab, 1 TAB PO Q6HP PRN, #30 TAB Prov:LISETH VALENTIN PAC 09/19/24 Cephalexin Monohydrate (Cephalexin) 500 Mg Cap, 1 CAP PO QID for 10 Days, #40 CAP Prov:LISETH VALENTIN PAC 09/19/24 Amoxicillin & Pot Clavulanate (Augmentin) 500 Mg Tab, 1 TAB PO BID, #10 TAB Prov:HAYDEE MENSAH MD 09/11/18 Azithromycin (Azithromycin) 500 Mg Tab, 1 TAB PO DAILY, #5 TAB Prov:HAYDEE MENSAH MD 09/11/18 Potassium Chloride (Klor-Con M20) 20 Meq Tab, 10 MEQ PO DAILY for 30 Days, #15 TAB Prov:HAYDEE MENSAH MD 09/11/18 Pantoprazole Sodium Sesquihydr (Pantoprazole Sodium) 40 Mg Tab, 40 MG PO DAILY for 30 Days, #30 TAB Prov:HAYDEE MENSAH MD 09/11/18 Nifedipine (Nifedipine ER) 30 Mg Tab, 90 MG PO DAILY for 30 Days, #90 TAB Prov:HAYDEE MENSAH MD 09/11/18 Metoprolol Tartrate (Lopressor) 25 Mg Tb, 50 MG PO BID for 30 Days Prov:HAYDEE MENSAH MD 09/11/18 Hydralazine Hcl (Hydralazine Hcl) 25 Mg Tab, 50 MG PO Q12H for 30 Days, #120 TAB Prov:HAYDEE MENSAH MD 09/11/18 Furosemide (Furosemide) 40 Mg Tab, 40 MG PO DAILY for 30 Days, #30 TAB Prov:HAYDEE MENSAH MD 09/11/18 Atorvastatin Calcium (ATORVASTATIN CALCIUM) 20 Mg Tab, 20 MG PO HS for 30 Days, #30 TAB Prov:HAYDEE MENSAH MD 09/11/18 Information Source: Patient Mode of Arrival: Ambulatory Severity: Moderate Timing: Days Duration: Since onset Prehospital treatment: Treatment Past Medical History PAST MEDICAL HISTORY: CHF, HTN Past Medical History (Other): Recent left ring finger tip amputation Surgical History: Tonsillectomy Family History Family History: Unknown Social History Smoker: Cigarettes Alcohol: Denies ETOH Use Drugs: Marijuana, Methamphetamine Lives In: Home Constitutional: denies: chills, diaphoresis, fatigue, fever, malaise, sweats, weakness, others EENTM: denies: blurred vision, double vision, ear bleeding, ear discharge, ear drainage, ear pain, ear ringing, eye pain, eye redness, hearing loss, mouth pain, mouth swelling, nasal discharge, nose bleeding, nose congestion, nose pain, photophobia, tearing, throat pain, throat swelling, voice changes, others Respiratory: denies: cough, hemoptysis, orthopnea, SOB at rest, shortness of breath, SOB with excertion, stridor, wheezing, others Cardiovascular: denies: chest pain, dizzy spells, diaphoresis, Dyspnea on exertion, edema, irregular heart beat, left arm pain, lightheadedness, palpitations, PND, syncope, others Gastrointestinal: denies: abdomen distended, abdominal pain, blood streaked bowels, constipated, diarrhea, dysphagia, difficulty swallowing, hematemesis, melena, nausea, poor appetite, poor fluid intake, rectal bleeding, rectal pain, vomiting, others Genitourinary: denies: burning, dysuria, flank pain, frequency, hematuria, incontinence, penile discharge, penile sore, pain, testicle pain, testicle swelling, urgency, others Neurological: denies: dizziness, fainting, headache, left sided numbness, left sided weakness, numbness, paresthesia, pre-existing deficit, right sided numbness, right sided weakness, seizure, speech problems, tingling, tremors, weakness, others Musculoskeletal: denies: back pain, gout, joint pain, joint swelling, muscle pain, muscle stiffness, neck pain, others Integumetry: reports: laceration (Tip amputation of the left ring finger and laceration to distal left middle finger); denies: bruises, change in color, change in hair/nails, dryness, lesions, lumps, rash, wounds, others Allergic/Immunocompromised: denies: Difficulty Healing, Frequent Infections, Hives, Itching, others Hematologic/Lymphatic: denies: anemia, blood clots, easy bleeding, easy bruising, swollen glands, others Endocrine: denies: excessive hunger, excessive sweating, excessive thirst, excessive urination, flushing, intolerance to cold, intolerance to heat, unexplained weight gain, unexplained weight loss, others Psychiatric: denies: anxiety, bipolar disorder, depression, hopeless, panic disorder, schizophrenia, sleepless, suicidal, others All Other Systems: Reviewed and Negative Physical Exam General Appearance: No Apparent Distress (Patient was in no distress at time of evaluation.), Obese HEENT: Normal ENT Inspection, Pharynx Normal, TMs Normal Neck: Full Range of Motion, Non-Tender, Normal, Normal Inspection Respiratory: Chest Non-Tender, Lungs Clear, No Accessory Muscle Use, No Respiratory Distress, Normal Breath Sounds Cardiovascular: No Edema, No JVD, No Murmur, No Gallop, Normal Peripheral Pulses, Regular Rate/Rhythm Breast Exam: Deferred Gastrointestinal: No Organomegaly, Non Tender, No Pulsatile Mass, Normal Bowel Sounds, Soft Genitalia: Deferred Pelvic: Deferred Rectal: Deferred Extremities: Other (Tip amputation of distal left ring finger and suture laceration of distal left middle finger are healing well. Both wounds displayed no signs of infection. No erythema or edema noted. 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 Was a procedure done?: No Differential Dx Considerations may include: Wound check, finger laceration, finger tip amputations X-Ray, Labs, Meds, VS Vital Signs Date Time Temp Pulse Resp B/P (MAP) Pulse Ox O2 Delivery O2 Flow Rate FiO2 09/25/24 15:10 97.9 63 18 142/88 (106) 98 X-Ray, Labs, Meds, VS Comment Advised patient that both wounds were healing nicely. Patient should continue antibiotics as directed and follow up in another five days for re-evaluation and probable suture removal. Time of 1ST Reevaluation: 15:50 Reevaluation 1ST: Improved Consultation: PCP Patient Education/Counseling: Diagnosis, Treatment Family Education/Counseling: Diagnosis, Treatment, No Family Present Departure 1 Departure Time of Disposition: 15:50 Impression: Primary Impression: Encounter for evaluation of wound Disposition: 01 HOME / SELF CARE / HOMELESS Condition: Stable Additional Instructions: Advised patient to continue antibiotics as directed as well as pain medication as needed. Patient should return to ED or primary care provider in five days for re-evaluation and probable suture removal. Discharged With: Self, Friend Critical Care Note Critical Care Time?: No Stability Stability form required: No Heart Score Heart Score: Heart Score Response (Comments) Value History N/A 0 EKG N/A 0 Age N/A 0 Risk Factors N/A 0 Troponin N/A 0 Total 0 I personally scribed for LISETH VALENTIN PAC ([email or web address]) on 09/25/24 at 15:27. Electronically submitted by Isabel Hodge ([email or web address]). LISETH VALENTIN PAC Sep 25, 2024 15:27
== END 2024-09-25 18:20 | disposition home or self-care (01) ==
LOC: ER 14:41
DX: Z48.89 Encounter for other specified surgical aftercare (principal); I11.0 Hypertensive heart disease with heart failure; I50.9 Heart failure, unspecified; F17.210 Nicotine dependence, cigarettes, uncomplicated; Z90.89 Acquired absence of other organs; Z79.899 Other long term (current) drug therapy